=== PATIENT | female | born 1935 | race Caucasian/White ===

== ENCOUNTER → 2016-06-20 | Outpatient (CLI) | payer MEDICARE, MEDICAID ==
[2016-06-20 12:34] LABS: ANION GAP 11 (5-19); BLOOD UREA NITROGEN 32 mg/dL (7-20); CALCIUM 10.8 mg/dL (8.4-10.2); CARBON DIOXIDE 25 mmol/L (22-30); CHLORIDE 105 mmol/L (98-107); CREATININE RESULT 1.54 mg/dL (0.52-1.25); GLUCOSE 95 mg/dL (75-110); SODIUM 140.7 mmol/L (137-145)
== END ==
LOC: OD 10:46
PROVIDERS: ATTEND Internal Medicine Nephrology
DX: N18.3 Chronic kidney disease, stage 3 (moderate) (principal); R80.9 Proteinuria, unspecified
CPT/HCPCS: 36415; 80048

== ENCOUNTER → 2016-07-25 | Outpatient (CLI) | payer MEDICARE, MEDICAID ==
[2016-07-25 10:52] LABS: ALANINE AMINOTRANSFERASE 24 U/L (9-52); ALBUMIN 3.2 g/dL (3.5-5.0); ALKALINE PHOSPHATASE 100 U/L (38-126); ASPARTATE AMINO TRANSFERASE 15 U/L (14-36); BILIRUBIN,TOTAL 0.4 mg/dL (0.2-1.3); CHOLESTEROL 118.18 mg/dL (0-200); Direct HDL 60 mg/dL (>40); TOTAL PROTEIN 5.7 g/dL (6.3-8.2); TRIGLYCERIDES 74 mg/dL (<150)
[2016-07-25 11:03] LABS: DIRECT LDL 42 mg/dL (<100)
== END ==
LOC: OD 09:48
PROVIDERS: ATTEND Specialist
DX: E78.5 Hyperlipidemia, unspecified (principal); I12.9 Hypertensive chronic kidney disease with stage 1 through stage 4 chronic kidney disease, or unspecified chronic kidney disease; N18.3 Chronic kidney disease, stage 3 (moderate); I25.10 Atherosclerotic heart disease of native coronary artery without angina pectoris; D04.30 Carcinoma in situ of skin of unspecified part of face; I44.7 Left bundle-branch block, unspecified; R01.1 Cardiac murmur, unspecified; Z79.899 Other long term (current) drug therapy
CPT/HCPCS: 36415; 80061; 80076

== ENCOUNTER → 2016-09-28 | Outpatient (CLI) | payer MEDICARE, MEDICAID ==
[2016-09-28 09:21] LABS: ABSOLUTE EOSINOPHILS # (AUTO) 0.2 10^3/uL (0.0-0.6); ABSOLUTE LYMPHOCYTES (AUTO) 1.1 10^3/uL (0.5-4.7); ABSOLUTE MONOCYTES (AUTO) 0.4 10^3/uL (0.1-1.4); ABSOLUTE NEUT (AUTO) 2.5 10^3/uL (1.7-8.2); BASOPHILS % (AUTO) 0.9 % (0-2); EOSINOPHILS % (AUTO) 3.8 % (0-6); HEMATOCRIT 35.3 % (36.0-47.0); HEMOGLOBIN 11.9 g/dL (12.0-15.5); HGB HCT DIFFERENCE 0.4; MEAN CORPUSCULAR HEMOGLOBIN 28.1 pg (27.0-33.4); MEAN CORPUSCULAR HGB CONC 33.7 g/dL (32.0-36.0); MEAN CORPUSCULAR VOLUME 84 fl (80-97); MONOCYTES % (AUTO) 9.5 % (3-13); RED BLOOD COUNT 4.23 10^6/uL (3.72-5.28); SEGMENTED NEUTROPHILS % (AUTO) 58.8 % (42-78); WHITE BLOOD COUNT 4.2 10^3/uL (4.0-10.5)
[2016-09-28 09:46] LABS: ANION GAP 10 (5-19); BLOOD UREA NITROGEN 33 mg/dL (7-20); CALCIUM 11.4 mg/dL (8.4-10.2); CARBON DIOXIDE 25 mmol/L (22-30); CHLORIDE 107 mmol/L (98-107); CREATININE RESULT 1.43 mg/dL (0.52-1.25); GLUCOSE 94 mg/dL (75-110); POTASSIUM 4.5 mmol/L (3.6-5.0); SODIUM 142.3 mmol/L (137-145)
== END ==
LOC: OD 07:55
PROVIDERS: ATTEND Internal Medicine Nephrology
DX: N18.3 Chronic kidney disease, stage 3 (moderate) (principal); D63.1 Anemia in chronic kidney disease; R80.9 Proteinuria, unspecified
CPT/HCPCS: 36415; 80048; 82570; 84156; 85025

== ENCOUNTER → 2016-12-31 | Outpatient (CLI) | payer MEDICARE, MEDICAID ==
[2016-12-31 09:15] LABS: URINE CREATININE 111.7 mg/dL (15-278); URINE PROTEIN 16.9 mg/dL (<12)
[2016-12-31 09:16] LABS: BLOOD UREA NITROGEN 27 mg/dL (7-20); CALCIUM 11.1 mg/dL (8.4-10.2); CHLORIDE 107 mmol/L (98-107); CREATININE RESULT 1.76 mg/dL (0.52-1.25); GLUCOSE 104 mg/dL (75-110); POTASSIUM 4.3 mmol/L (3.6-5.0)
[2016-12-31 09:35] LABS: ANION GAP 10 (5-19); CARBON DIOXIDE 23 mmol/L (22-30)
== END ==
LOC: OD 07:22
PROVIDERS: ATTEND Internal Medicine Nephrology
DX: N18.3 Chronic kidney disease, stage 3 (moderate) (principal); R80.9 Proteinuria, unspecified
CPT/HCPCS: 36415; 80048; 82570; 84156

== ENCOUNTER → 2017-04-03 | Outpatient (CLI) | payer MEDICARE, MEDICAID ==
[2017-04-03 13:48] LABS: APPEARANCE,URINE CLEAR; BILIRUBIN,URINE NEGATIVE (NEGATIVE); GLUCOSE, URINE NEGATIVE (NEGATIVE); KETONES,URINE NEGATIVE (NEGATIVE); LEUKOCYTE ESTERASE,URINE LARGE (NEGATIVE); NITRITE,URINE NEGATIVE (NEGATIVE); PROTEIN,URINE NEGATIVE (NEGATIVE); URINE SPECIFIC GRAVITY 1.009; UROBILINOGEN,URINE NEGATIVE mg/dL (<2.0)
[2017-04-03 14:24] LABS: ALBUMIN 3.9 g/dL (3.5-5.0); ANION GAP 11 (5-19); BLOOD UREA NITROGEN 22 mg/dL (7-20); CALCIUM 11.1 mg/dL (8.4-10.2); CARBON DIOXIDE 26 mmol/L (22-30); CHLORIDE 104 mmol/L (98-107); CREATININE RESULT 1.39 mg/dL (0.52-1.25); GLUCOSE 112 mg/dL (75-110); PHOSPHORUS 2.9 mg/dL (2.5-4.5); SODIUM 140.6 mmol/L (137-145)
[2017-04-04 07:32] LABS: VITAMIN D 25-HYDROXY 49.1 ng/mL (30.0-100.0)
[2017-04-04 12:38] LABS: MICROALBUMIN URINE 65.2 ug/mL (Not Estab.)
== END ==
LOC: OD 12:35
PROVIDERS: ATTEND Internal Medicine Nephrology
DX: E21.3 Hyperparathyroidism, unspecified (principal); R80.9 Proteinuria, unspecified; I12.9 Hypertensive chronic kidney disease with stage 1 through stage 4 chronic kidney disease, or unspecified chronic kidney disease; N18.9 Chronic kidney disease, unspecified
CPT/HCPCS: 36415; 80048; 81001; 82040; 82043; 82306; 82570; 83970; 84100

== ENCOUNTER → 2017-08-07 | Outpatient (CLI) | payer MEDICARE, MEDICAID ==
[2017-08-07 12:26] LABS: ANION GAP 8 (5-19); BLOOD UREA NITROGEN 27 mg/dL (7-20); CALCIUM 11.3 mg/dL (8.4-10.2); CARBON DIOXIDE 24 mmol/L (22-30); CHLORIDE 106 mmol/L (98-107); GLUCOSE 99 mg/dL (75-110); POTASSIUM 4.6 mmol/L (3.6-5.0); SODIUM 137.6 mmol/L (137-145)
[2017-08-08 13:38] LABS: CREATININE URINE 74.5 mg/dL (Not Estab.)
== END ==
LOC: OD 10:50
PROVIDERS: ATTEND Internal Medicine Nephrology
DX: N18.3 Chronic kidney disease, stage 3 (moderate) (principal); R80.9 Proteinuria, unspecified
CPT/HCPCS: 36415; 80048; 82043; 82570

== ENCOUNTER → 2019-04-30 | Outpatient (CLI) | payer MEDICARE, MEDICAID ==
[2019-04-30 13:46] LABS: ANION GAP 9 (5-19); BLOOD UREA NITROGEN 21 mg/dL (7-20); CALCIUM 11.6 mg/dL (8.4-10.2); CARBON DIOXIDE 25 mmol/L (22-30); CHLORIDE 105 mmol/L (98-107); GLUCOSE 98 mg/dL (75-110); POTASSIUM 5.1 mmol/L (3.6-5.0)
== END ==
LOC: OD 12:11
PROVIDERS: ATTEND Family Medicine
DX: E87.5 Hyperkalemia (principal)
CPT/HCPCS: 36415; 80048

== ENCOUNTER → 2019-06-02 | Outpatient (CLI) | payer MEDICARE, MEDICAID ==
[2019-06-02 11:36] LABS: ABSOLUTE BASOPHILS # (AUTO) 0.1 10^3/uL (0.0-0.2); ABSOLUTE EOSINOPHILS # (AUTO) 0.3 10^3/uL (0.0-0.6); ABSOLUTE LYMPHOCYTES (AUTO) 1.7 10^3/uL (0.5-4.7); ABSOLUTE MONOCYTES (AUTO) 0.5 10^3/uL (0.1-1.4); ABSOLUTE NEUT (AUTO) 4.2 10^3/uL (1.7-8.2); BASOPHILS % (AUTO) 0.8 % (0-2); EOSINOPHILS % (AUTO) 5.1 % (0-6); HEMATOCRIT 33.2 % (36.0-47.0); HEMOGLOBIN 11.1 g/dL (12.0-15.5); LYMPHOCYTES % (AUTO) 24.4 % (13-45); MEAN CORPUSCULAR HEMOGLOBIN 27.7 pg (27.0-33.4); MEAN CORPUSCULAR HGB CONC 33.5 g/dL (32.0-36.0); MEAN CORPUSCULAR VOLUME 83 fl (80-97); MONOCYTES % (AUTO) 7.5 % (3-13); PLATELET COUNT 157 10^3/uL (150-450); RED BLOOD COUNT 4.01 10^6/uL (3.72-5.28); RED CELL DISTRIBUTION WIDTH 15.3 % (11.5-14.0); SEGMENTED NEUTROPHILS % (AUTO) 62.2 % (42-78); TOTAL CELLS COUNTED % (AUTO) 100 %; WHITE BLOOD COUNT 6.8 10^3/uL (4.0-10.5)
[2019-06-02 11:38] LABS: APPEARANCE,URINE SLIGHTLY-CLOUDY; BILIRUBIN,URINE NEGATIVE (NEGATIVE); COLOR,URINE YELLOW; GLUCOSE, URINE NEGATIVE (NEGATIVE); KETONES,URINE NEGATIVE (NEGATIVE); LEUKOCYTE ESTERASE,URINE LARGE (NEGATIVE); NITRITE,URINE NEGATIVE (NEGATIVE); PROTEIN,URINE NEGATIVE (NEGATIVE); URINE SPECIFIC GRAVITY 1.009; UROBILINOGEN,URINE NEGATIVE mg/dL (<2.0)
[2019-06-02 12:01] LABS: ALBUMIN 3.7 g/dL (3.5-5.0); ANION GAP 10 (5-19); BLOOD UREA NITROGEN 24 mg/dL (7-20); CALCIUM 11.8 mg/dL (8.4-10.2); CARBON DIOXIDE 26 mmol/L (22-30); CHLORIDE 104 mmol/L (98-107); GLUCOSE 102 mg/dL (75-110); POTASSIUM 4.6 mmol/L (3.6-5.0)
[2019-06-03 13:37] LABS: CREATININE URINE 53.7 mg/dL (Not Estab.); MICROALBUMIN URINE 17.3 ug/mL (Not Estab.)
== END ==
LOC: OD 11:00
PROVIDERS: ATTEND Internal Medicine Nephrology
DX: I12.9 Hypertensive chronic kidney disease with stage 1 through stage 4 chronic kidney disease, or unspecified chronic kidney disease (principal); N18.3 Chronic kidney disease, stage 3 (moderate); E83.52 Hypercalcemia; E21.3 Hyperparathyroidism, unspecified
CPT/HCPCS: 36415; 80069; 81001; 82043; 82306; 82570; 83970; 85025

== ENCOUNTER → 2019-09-07 | Outpatient (CLI) | payer MEDICARE, MEDICAID ==
[2019-09-07 13:06] LABS: ABSOLUTE EOSINOPHILS # (AUTO) 0.2 10^3/uL (0.0-0.6); ABSOLUTE LYMPHOCYTES (AUTO) 1.6 10^3/uL (0.5-4.7); ABSOLUTE MONOCYTES (AUTO) 0.5 10^3/uL (0.1-1.4); ABSOLUTE NEUT (AUTO) 4.4 10^3/uL (1.7-8.2); BASOPHILS % (AUTO) 0.7 % (0-2); EOSINOPHILS % (AUTO) 3.4 % (0-6); HEMATOCRIT 34.5 % (36.0-47.0); HEMOGLOBIN 11.7 g/dL (12.0-15.5); LYMPHOCYTES % (AUTO) 23.5 % (13-45); MEAN CORPUSCULAR HEMOGLOBIN 28.1 pg (27.0-33.4); MEAN CORPUSCULAR HGB CONC 33.8 g/dL (32.0-36.0); MEAN CORPUSCULAR VOLUME 83 fl (80-97); MONOCYTES % (AUTO) 6.9 % (3-13); PLATELET COUNT 137 10^3/uL (150-450); RED BLOOD COUNT 4.16 10^6/uL (3.72-5.28); SEGMENTED NEUTROPHILS % (AUTO) 65.5 % (42-78); TOTAL CELLS COUNTED % (AUTO) 100 %; WHITE BLOOD COUNT 6.7 10^3/uL (4.0-10.5)
[2019-09-07 13:33] LABS: ANION GAP 9 (5-19); BLOOD UREA NITROGEN 24 mg/dL (7-20); CALCIUM 11.6 mg/dL (8.4-10.2); CARBON DIOXIDE 25 mmol/L (22-30); CHLORIDE 104 mmol/L (98-107); GLUCOSE 105 mg/dL (75-110); IRON(TIBC) 69.7 ug/dL (37-170)
[2019-09-08 11:37] LABS: CREATININE URINE 59.4 mg/dL (Not Estab.); MICROALBUMIN URINE 267.6 ug/mL (Not Estab.)
[2019-09-08 13:36] LABS: A/G RATIO 1.2 (0.7-1.7); ALBUMIN 2 3.5 g/dL (2.9-4.4); GAMMA GLOBULIN 0.7 g/dL (0.4-1.8); MONOCLONAL SPIKE Not Observed g/dL (Not Observ); PROTEIN TOTAL SERUM 6.5 g/dL (6.0-8.5)
== END ==
LOC: OD 12:26
PROVIDERS: ATTEND Internal Medicine Nephrology
DX: I12.9 Hypertensive chronic kidney disease with stage 1 through stage 4 chronic kidney disease, or unspecified chronic kidney disease (principal); N18.4 Chronic kidney disease, stage 4 (severe)
CPT/HCPCS: 36415; 80048; 82043; 82164; 82306; 82397; 82570; 82728; 83540; 83550; 83970; 84165; 85025

== ENCOUNTER 2020-04-17 14:47 | Inpatient (IN) | payer MEDICARE, MEDICAID ==
[2020-04-17] MEDS ORDERED: NYSTATIN TOPICAL POWDER 15 GM TP ONE (15:15)
--- NOTE | 2020-04-17 15:18 | ER Document Report ---
ED General - General Chief Complaint: Weakness Stated Complaint: WEAKNESS Time Seen by Provider: 04/17/20 14:59 Mode of Arrival: Medic Information source: Patient, Emergency Med Personnel Notes: 84-year-old female patient presenting to the emergency department from home. According to nursing staff and EMS patient's family called EMS due to low blood pressure. They stated she has not taken her blood pressure medication in several days, she took it today and had an episode of low blood pressure. There is also complaints of patient falling however patient states she did not fall today but has been falling a lot lately. According to EMS the patient lives with her daughter in a shed. They have made a report to Adult Protective Services. Patient reports generalized weakness. She states that she sees Dr. Schaeffer as her primary care provider. TRAVEL OUTSIDE OF THE [place] IN LAST 30 DAYS: No - Related Data Allergies/Adverse Reactions: No Known Allergies Allergy (Unverified 09/24/13 09:51) Past Medical History - General Information source: Patient, Relative - Son - Social History Smoking Status: Unknown if Ever Smoked Family History: Other - unable to review, pt states she does not know - Past Medical History Cardiac Medical History: Reports: Hx Hypercholesterolemia, Hx Hypertension Psychiatric Medical History: Reports: Hx Depression Past Surgical History: Reports: Hx Cholecystectomy - Immunizations Hx Diphtheria, Pertussis, Tetanus Vaccination: Yes Review of Systems - Review of Systems Constitutional: Weakness Gastrointestinal: Nausea, Vomiting -: Yes All other systems reviewed and negative Physical Exam - Vital signs Vitals: Resp 33 H 04/17/20 14:52 - Notes Notes: PHYSICAL EXAMINATION: GENERAL: Disheveled, appears to be stated age. HEAD: Atraumatic, normocephalic. EYES: Pupils equal round and reactive to light, extraocular movements intact, conjunctiva are normal. ENT: Nares patent, oropharynx clear without exudates. Moist mucous membranes. NECK: Normal range of motion, supple without lymphadenopathy LUNGS: Breath sounds clear to auscultation bilaterally and equal. No wheezes rales or rhonchi. HEART: Regular rate and rhythm without murmurs ABDOMEN: Soft, nontender, nondistended abdomen. No guarding, no rebound. No masses appreciated. Female : deferred Musculoskeletal: Normal range of motion, no pitting or edema. No cyanosis. NEUROLOGICAL: Cranial nerves grossly intact. Normal sensory, motor exams PSYCH: Normal mood, normal affect. SKIN: Skin wound to left lower extremity Course - Re-evaluation Re-evalutation: 04/17/20 15:17 The patient appears very disheveled, unkempt. She has a erythematous rash to her groin that is very foul-smelling. She also has a dressing to her left lower extremity, patient tells me she does not know why it is there. She denies any chest pain, shortness of breath or unilateral weakness. 04/17/20 16:49 The patient's troponin is elevated however her EKG is unchanged from previous and patient has not had any chest pain. She does have chronic kidney disease. I discussed case with Dr. Wellington, we will trend her troponin to see if this is her baseline or if indeed this is an acute change. 04/17/20 19:27 Repeat troponin slightly down from initial troponin. Again patient has no chest pain. Patient son is at the bedside, he tells me patient has been much more weak than her baseline. She was vomiting for 5 days, the last time she vomited was last night. Call placed to Dr. Pappas who is covering for Dr. Schaeffer. Awaiting phone call back. 04/17/20 19:[address] Pappas. He will admit the patient to the medical floor. Her son at the bedside was updated. - Vital Signs Vital signs: Temp Pulse Resp BP Pulse Ox 97.9 F 17 100/51 L 100 04/17/20 15:54 04/17/20 19:06 04/17/20 19:06 04/17/20 19:06 - Laboratory Result Diagrams: 04/17/20 14:58 04/17/20 14:58 Laboratory results interpreted by me: 04/17/20 04/17/20 04/17/20 14:58 14:58 15:12 Hgb 11.6 L Hct 34.7 L RDW 15.5 H Lymph % (Auto) 11.3 L Absolute Neuts (auto) 8.3 H Seg Neutrophils % 82.4 H Potassium 3.1 L Chloride 110 H BUN 52 H Creatinine 1.96 H Est GFR ( Amer) 29 L Est GFR (MDRD) Non-Af 24 L Calcium 11.8 H Total Protein 5.0 L Albumin 2.7 L Urine Protein 30 H - EKG Interpretation by Ut EKG shows normal: Sinus rhythm - rate 66, left bundle branch block noted, this is unchanged from previous EKG on file dated 01/30/2016. No obvious ST segment elevations or depressions to suggest ischemia. Discharge - Discharge Clinical Impression: Generalized weakness, Dehydration Condition: Stable Disposition: ADMITTED INPATIENT Admitting Provider: Mian Roach [facility] Unit Admitted: Medical Floor
[2020-04-17 15:23] LABS: ABSOLUTE EOSINOPHILS # (AUTO) 0.1 10^3/uL (0.0-0.6); ABSOLUTE LYMPHOCYTES (AUTO) 1.1 10^3/uL (0.5-4.7); ABSOLUTE MONOCYTES (AUTO) 0.5 10^3/uL (0.1-1.4); ABSOLUTE NEUT (AUTO) 8.3 10^3/uL (1.7-8.2); BASOPHILS % (AUTO) 0.1 % (0-2); EOSINOPHILS % (AUTO) 0.9 % (0-6); HEMATOCRIT 34.7 % (36.0-47.0); HEMOGLOBIN 11.6 g/dL (12.0-15.5); LYMPHOCYTES % (AUTO) 11.3 % (13-45); MEAN CORPUSCULAR HEMOGLOBIN 28.6 pg (27.0-33.4); MEAN CORPUSCULAR HGB CONC 33.6 g/dL (32.0-36.0); MEAN CORPUSCULAR VOLUME 85 fl (80-97); MONOCYTES % (AUTO) 5.3 % (3-13); PLATELET COUNT 157 10^3/uL (150-450); RED BLOOD COUNT 4.06 10^6/uL (3.72-5.28); RED CELL DISTRIBUTION WIDTH 15.5 % (11.5-14.0); SEGMENTED NEUTROPHILS % (AUTO) 82.4 % (42-78); TOTAL CELLS COUNTED % (AUTO) 100 %; WHITE BLOOD COUNT 10.1 10^3/uL (4.0-10.5)
[2020-04-17 15:42] LABS: ALBUMIN 2.7 g/dL (3.5-5.0); ALKALINE PHOSPHATASE 118 U/L (38-126); ANION GAP 10 (5-19); ASPARTATE AMINO TRANSFERASE 20 U/L (14-36); BILIRUBIN,DIRECT 0.3 mg/dL (0.0-0.4); BILIRUBIN,TOTAL 0.7 mg/dL (0.2-1.3); BLOOD UREA NITROGEN 52 mg/dL (7-20); CALCIUM 11.8 mg/dL (8.4-10.2); CARBON DIOXIDE 24 mmol/L (22-30); CHLORIDE 110 mmol/L (98-107); CREATINE KINASE 46 U/L (30-135); GLUCOSE 105 mg/dL (75-110); POTASSIUM 3.1 mmol/L (3.6-5.0)
[2020-04-17 15:49] LABS: APPEARANCE,URINE CLEAR; BILIRUBIN,URINE NEGATIVE (NEGATIVE); COLOR,URINE YELLOW; GLUCOSE, URINE NEGATIVE (NEGATIVE); KETONES,URINE NEGATIVE (NEGATIVE); LEUKOCYTE ESTERASE,URINE NEGATIVE (NEGATIVE); NITRITE,URINE NEGATIVE (NEGATIVE); PROTEIN,URINE 30 mg/dL (NEGATIVE); URINE SPECIFIC GRAVITY 1.017; UROBILINOGEN,URINE NEGATIVE mg/dL (<2.0)
[2020-04-17 15:51] LABS: CREATINE KINASE MB 0.58 ng/mL (<4.55)
--- NOTE | 2020-04-17 15:52 | RADIOLOGY REPORT (SQ) ---
EXAM DESCRIPTION: CT HEAD WITHOUT IMAGES COMPLETED DATE/TIME: 04/17/2020 3:43 pm REASON FOR STUDY: weakness/ams COMPARISON: None. TECHNIQUE: Axial images acquired through the brain without intravenous contrast. Images reviewed wi th bone, brain and subdural windows. Additional sagittal and coronal reconstructions were generated. Images stored on PACS. All CT scanners at this facility use dose modulation, iterative reconstruction, and/or weight based d osing when appropriate to reduce radiation dose to as low as reasonably achievable (ALARA). [facility]: Dose Right [facility]: CareDose [facility]: Dose Right [facility]: Teradose 4D [facility]: Smart [employer] RADIATION DOSE: CT Rad equipment meets quality standard of care and radiation dose reduction techniq ues were employed. CTDIvol: 53.2 mGy. DLP: 991 mGy-cm.mGy. LIMITATIONS: None. FINDINGS: VENTRICLES: Prominent. CEREBRUM: No masses. No hemorrhage. No midline shift. Areas of low density in the white matter mos t likely due to chronic micro-vascular ischemic change. No evidence for acute infarction. CEREBELLUM: No masses. No hemorrhage. No alteration of density. No evidence for acute infarction. EXTRAAXIAL SPACES: Age-related involutional change. No fluid collections. No masses. ORBITS AND GLOBE: No intra- or extraconal masses. Normal contour of globe without masses. CALVARIUM: No fracture. PARANASAL SINUSES: No fluid or mucosal thickening. SOFT TISSUES: No mass or hematoma. OTHER: No other significant finding. IMPRESSION: CHRONIC CHANGES OF ATROPHY AND MICROVASCULAR ISCHEMIA. NO ACUTE PROCESS. EVIDENCE OF ACUTE STROKE: NO. TECHNICAL DOCUMENTATION: JOB ID: [id number] Quality ID # [id number]: Final reports with documentation of one or more dose reduction techniques (e.g., Au tomated exposure control, adjustment of the mA and/or kV according to patient size, use of iterative reconstruction technique) 2010 [employer]- All Rights Reserved Reading location - IP/workstation name: [email or web address]
[2020-04-17 15:53] LABS: TROPONIN I 0.121 ng/mL
--- NOTE | 2020-04-17 15:53 | RADIOLOGY REPORT (SQ) ---
EXAM DESCRIPTION: CHEST SINGLE VIEW IMAGES COMPLETED DATE/TIME: 04/17/2020 3:41 pm REASON FOR STUDY: weakness COMPARISON: 10/07/2013 EXAM PARAMETERS: NUMBER OF VIEWS: One view. TECHNIQUE: Single frontal radiographic view of the chest acquired. RADIATION DOSE: NA LIMITATIONS: None. FINDINGS: LUNGS AND PLEURA: Chronic blunting of the left costophrenic angle. No evidence of pulmona ry edema or pneumonia. MEDIASTINUM AND HILAR STRUCTURES: No masses. Contour normal. HEART AND VASCULAR STRUCTURES: Heart normal in size. Normal vasculature. BONES: No acute findings. HARDWARE: None in the chest. OTHER: Stable position of right-sided port. IMPRESSION: NO ACUTE RADIOGRAPHIC FINDING IN THE CHEST. TECHNICAL DOCUMENTATION: JOB ID: [id number] 2010 [employer]- All Rights Reserved Reading location - IP/workstation name: [email or web address]
--- NOTE | 2020-04-17 18:50 | EKG REPORT ---
SEVERITY:- ABNORMAL ECG - SINUS RHYTHM ATRIAL PREMATURE COMPLEX LEFT BUNDLE BRANCH BLOCK : Confirmed by: Nic Hardy MD 17-Apr-2020 18:49:44
[2020-04-17] MEDS ORDERED: POTASSIUM CHLORIDE 10 MEQ TABLET.ER PO ONE (19:29)
[2020-04-17] MEDS ORDERED: NORMAL SALINE 1000 ML 1,000 ML IV ONE (19:29)
[2020-04-17] MEDS ORDERED: NORMAL SALINE 1000 ML 1,000 ML IV PRN (20:05)
[2020-04-18 08:24] LABS: HEMATOCRIT 34.5 % (36.0-47.0); HEMOGLOBIN 11.3 g/dL (12.0-15.5); MEAN CORPUSCULAR HEMOGLOBIN 28.1 pg (27.0-33.4); MEAN CORPUSCULAR HGB CONC 32.7 g/dL (32.0-36.0); MEAN CORPUSCULAR VOLUME 86 fl (80-97); PLATELET COUNT 141 10^3/uL (150-450); RED BLOOD COUNT 4.02 10^6/uL (3.72-5.28); RED CELL DISTRIBUTION WIDTH 16.3 % (11.5-14.0); WHITE BLOOD COUNT 8.9 10^3/uL (4.0-10.5)
[2020-04-18 08:44] LABS: ANION GAP 10 (5-19); BLOOD UREA NITROGEN 45 mg/dL (7-20); CALCIUM 11.3 mg/dL (8.4-10.2); CARBON DIOXIDE 19 mmol/L (22-30); CHLORIDE 114 mmol/L (98-107); GLUCOSE 83 mg/dL (75-110)
[2020-04-18 08:48] LABS: POTASSIUM 3.6 mmol/L (3.6-5.0)
--- NOTE | 2020-04-18 10:25 | RADIOLOGY REPORT (SQ) ---
EXAM DESCRIPTION: CT ABD/PELVIS NO ORAL OR IV IMAGES COMPLETED DATE/TIME: 04/18/2020 9:57 am REASON FOR STUDY: nause/vomiting COMPARISON: CT 07/23/2011 TECHNIQUE: CT scan of the abdomen and pelvis performed without intravenous or oral contrast. Images reviewed with lung, soft tissue, and bone windows. Reconstructed coronal and sagittal MPR images revi ewed. All images stored on PACS. All CT scanners at this facility use dose modulation, iterative reconstruction, and/or weight based d osing when appropriate to reduce radiation dose to as low as reasonably achievable (ALARA). [facility]: Dose Right [facility]: CareDose [facility]: Dose Right [facility]: Teradose 4D [facility]: Smart [employer] RADIATION DOSE: CT Rad equipment meets quality standard of care and radiation dose reduction techniq ues were employed. CTDIvol: 13.8 mGy. DLP: 700 mGy-cm.mGy. LIMITATIONS: None. FINDINGS: LOWER CHEST: Heavy mitral annulus calcifications versus hardware. No acute intrathoracic findings. NON-CONTRASTED LIVER, SPLEEN, ADRENALS: Evaluation limited by lack of IV contrast. Bilateral low-den sity (Hounsfield units less than 10) adrenal lesions, largest on the right measuring 2.0 x 1.7 cm, co mpatible with adrenal adenomas. No other Identified significant masses. PANCREAS: There is asymmetric soft tissue density within the pancreatic tail measuring approximately 2.3 x 1.4 cm. There is mild adjacent peripancreatic stranding. No focal collection. GALLBLADDER: Surgically absent. RIGHT KIDNEY AND URETER: No suspicious masses. Assessment limited by lack of IV contrast. No signif icant calcifications. No hydronephrosis or hydroureter. LEFT KIDNEY AND URETER: No suspicious masses. Assessment limited by lack of IV contrast. Punctate n onobstructing interpolar stone. No hydronephrosis or hydroureter. AORTA AND RETROPERITONEUM: Shotty retroperitoneal lymph nodes without discrete adenopathy. BOWEL AND PERITONEAL CAVITY: Scattered colonic diverticula. No evidence of intestinal obstruction. No focal bowel wall thickening. APPENDIX: Not identified. PELVIS, BLADDER, AND ABDOMINAL WALL:Decompressed urinary bladder. No pelvic free fluid, adenopathy o r mass. BONES: No acute bony abnormality. No suspicious osseous lesions. Multilevel thoracolumbar spondylos is. OTHER: No other significant finding. IMPRESSION: 1. Asymmetric soft tissue density within the pancreatic tail measuring approximately 2. 3 x 1.4 cm with mild adjacent peripancreatic stranding. Findings may be sequelae of pancreatitis alt shobha pancreatic neoplasm is not excluded. Recommend correlation with lab values and patient's sympt oms. Follow-up dedicated pancreatic protocol CT or MRI should be considered for further characteriza tion. 2. No other evidence of acute intra-abdominal/pelvic process. 3. Status post cholecystectomy. COMMENT: Quality ID # [id number]: Final reports with documentation of one or more dose reduction techniques (e.g., Automated exposure control, adjustment of the mA and/or kV according to patient size, use of iterative reconstruction technique) TECHNICAL DOCUMENTATION: JOB ID: [id number] 2010 [employer]- All Rights Reserved Reading location - IP/workstation name: [email or web address]
[2020-04-18 11:55] LABS: ALBUMIN 2.5 g/dL (3.5-5.0); ALKALINE PHOSPHATASE 108 U/L (38-126); ASPARTATE AMINO TRANSFERASE 21 U/L (14-36); BILIRUBIN,DIRECT 0.3 mg/dL (0.0-0.4); BILIRUBIN,TOTAL 0.5 mg/dL (0.2-1.3); TOTAL PROTEIN 5.1 g/dL (6.3-8.2)
--- NOTE | 2020-04-18 12:16 | PDOC H&P ---
History of Present Illness Admission Date/PCP: 04/17/20 19:47 Patient complains of: Weakness History of Present Illness: VIOLETA TIERNEY is a 84 year old female This 84-year-old female's with a significant history of the chronic kidney disease stage IV hypertension's hyperlipidemia underlying dementia coronary artery disease and multiple other comorbidityBrought to the emergency department by the her son to the EMS because of getting more weak According to the son patient's was taking care of by her daughters when she got a stroke couple of months back and then patient last week went to her old house and the patient was not eating or drinking when the son went to the house patient was very weak patient's son try to give her some blood pressure medications and then makes the patient's blood pressure slowed and very weak and called the EMS In the emergency department patient was find the dehydrated acute renal failure and admitting in the hospital I saw the patient in the 4 patient was alert awake but agitated patient have a significant groin candidiasis order the CT scan of the abdomen and pelvis with so the questionable pancreatic issue with possible pancreatitis with a lipase was elevated At this point discussed with the patient's son Sammy regarding the patient's current conditions about the CODE STATUS and he will discussed with her family member but pretty much toward about the no code Past Medical History Cardiac Medical History: Reports: Congestive Heart Failure, Coronary Artery Disease, Hyperlipidema, Hypertension Renal/ Medical History: Reports: Chronic Kidney Disease GI Medical History: Reports: Gastroesophageal Reflux Disease Psychiatric Medical History: Reports: Depression Past Surgical History Past Surgical History: Reports: Cholecystectomy Social History Information Source: Patient Smoking Status: Never Smoker Electronic Cigarette use?: No Frequency of Alcohol Use: None Hx Recreational Drug Use: No Drugs: None Hx Prescription Drug Abuse: No Family History Family History: Other - unable to review, pt states she does not know Parental Family History Reviewed: Yes Children Family History Reviewed: Yes Sibling(s) Family History Reviewed.: Yes Medication/Allergy Home Medications: Clonidine HCl [Catapres 0.2 mg Tablet] 0.2 mg PO TID 09/24/13 Hydralazine HCl [Apresoline 50 mg Tablet] 100 mg PO Q8 #90 tablet 09/26/13 Atenolol [Tenormin 50 mg Tablet] 50 mg PO Q12 04/18/20 Furosemide [Lasix 20 mg Tablet] 10 mg PO DAILY 04/18/20 Losartan Potassium 50 mg PO Q12 04/18/20 Mupirocin [Bactroban 2% Ointment 22 gm] 1 applic TOP TID 04/18/20 Rosuvastatin Calcium 5 mg PO QHS 04/18/20 Allergies/Adverse Reactions: No Known Allergies Allergy (Unverified 09/24/13 09:51) Review of Systems Constitutional: ABSENT: chills, fever(s), headache(s), weight gain, weight loss Eyes: ABSENT: visual disturbances Ears: ABSENT: hearing changes Cardiovascular: ABSENT: chest pain, dyspnea on exertion, edema, orthropnea, palpitations Respiratory: ABSENT: cough, hemoptysis Gastrointestinal: ABSENT: abdominal pain, constipation, diarrhea, hematemesis, hematochezia, nausea, vomiting Genitourinary: ABSENT: dysuria, hematuria Musculoskeletal: ABSENT: joint swelling Integumentary: ABSENT: rash, wounds Neurological: ABSENT: abnormal gait, abnormal speech, confusion, dizziness, focal weakness, syncope Psychiatric: ABSENT: anxiety, depression, homidical ideation, suicidal ideation Endocrine: ABSENT: cold intolerance, heat intolerance, menstrual abnormalities, polydipsia, polyuria Hematologic/Lymphatic: ABSENT: easy bleeding, easy bruising, lymphadenopathy Physical Exam Vital Signs: Temp Pulse Resp BP Pulse Ox 97.3 F 64 18 153/61 H 98 04/18/20 08:42 04/18/20 08:42 04/18/20 08:42 04/18/20 08:42 04/18/20 08:42 Intake & Output 04/17/20 04/18/20 04/19/20 06:59 06:59 06:59 Intake Total 1260 Output Total 0 Balance 1260 Weight 78.3 kg General appearance: PRESENT: no acute distress, well-developed, well-nourished Head exam: PRESENT: atraumatic, normocephalic Eye exam: PRESENT: conjunctiva pink, EOMI, PERRLA. ABSENT: scleral icterus Ear exam: PRESENT: normal external ear exam Mouth exam: PRESENT: moist, tongue midline Neck exam: PRESENT: full ROM. ABSENT: carotid bruit, JVD, lymphadenopathy, thyromegaly Respiratory exam: PRESENT: clear to auscultation ying Cardiovascular exam: PRESENT: RRR. ABSENT: diastolic murmur, rubs, systolic murmur Vascular exam: PRESENT: normal capillary refill GI/Abdominal exam: PRESENT: normal bowel sounds, soft. ABSENT: distended, guarding, mass, organolmegaly, rebound, tenderness Additonal comments: Bilateral redness in the both groin area with a candiadis Rectal exam: PRESENT: deferred Neurological exam: PRESENT: alert, awake, oriented to person. ABSENT: motor sensory deficit Psychiatric exam: PRESENT: appropriate affect, normal mood. ABSENT: homicidal ideation, suicidal ideation Skin exam: PRESENT: dry, intact, warm. ABSENT: cyanosis, rash Results Laboratory Results: 04/18/20 08:04 04/18/20 08:04 04/17/20 04/17/20 04/17/20 14:58 14:58 15:12 WBC 10.1 RBC 4.06 Hgb 11.6 L Hct 34.7 L MCV 85 MCH 28.6 MCHC 33.6 RDW 15.5 H Plt Count 157 Seg Neutrophils % 82.4 H Sodium 144.4 Potassium 3.1 L Chloride 110 H Carbon Dioxide 24 Anion Gap 10 BUN 52 H Creatinine 1.96 H Est GFR ( Amer) 29 L Glucose 105 Calcium 11.8 H Total Bilirubin 0.7 AST 20 Alkaline Phosphatase 118 Total Protein 5.0 L Albumin 2.7 L Lipase Urine Color YELLOW Urine Appearance CLEAR Urine pH 5.0 Ur Specific Sherman 1.017 Urine Protein 30 H Urine Glucose (UA) NEGATIVE Urine Ketones NEGATIVE Urine Blood NEGATIVE Urine Nitrite NEGATIVE Ur Leukocyte Esterase NEGATIVE Urine WBC (Auto) 0 04/18/20 04/18/20 04/18/20 08:04 08:04 08:04 WBC 8.9 RBC 4.02 Hgb 11.3 L Hct 34.5 L MCV 86 MCH 28.1 MCHC 32.7 RDW 16.3 H Plt Count 141 L Seg Neutrophils % Sodium 143.1 Potassium 3.6 Chloride 114 H Carbon Dioxide 19 L Anion Gap 10 BUN 45 H Creatinine 1.66 H Est GFR ( Amer) 36 L Glucose 83 Calcium 11.3 H Total Bilirubin 0.5 AST 21 Alkaline Phosphatase 108 Total Protein 5.1 L Albumin 2.5 L Lipase 544.5 H Urine Color Urine Appearance Urine pH Ur Specific Sherman Urine Protein Urine Glucose (UA) Urine Ketones Urine Blood Urine Nitrite Ur Leukocyte Esterase Urine WBC (Auto) 04/17/20 04/17/20 04/17/20 14:58 14:58 18:03 Creatine Kinase 46 CK-MB (CK-2) 0.58 Troponin I 0.121 0.104 Impressions: Chest X-Ray 04/17/20 15:13 IMPRESSION: NO ACUTE RADIOGRAPHIC FINDING IN THE CHEST. Head CT 04/17/20 15:14 IMPRESSION: CHRONIC CHANGES OF ATROPHY AND MICROVASCULAR ISCHEMIA. NO ACUTE PROCESS. EVIDENCE OF ACUTE STROKE: NO. Abdomen/Pelvis CT 04/18/20 00:00 IMPRESSION: 1. Asymmetric soft tissue density within the pancreatic tail measuring approximately 2.3 x 1.4 cm with mild adjacent peripancreatic stranding. Findings may be sequelae of pancreatitis although pancreatic neoplas m is not excluded. Recommend correlation with lab values and patient's symptoms. Follow-up dedicated pancreatic protocol CT or MRI should be considered for further characterization. 2. No other evidence of acute intra-abdominal/pelvic process. 3. Status post cholecystectomy. Assessment & Plan - Diagnosis (1) Acute pancreatitis Qualifiers: Acute pancreatitis complication: unspecified Is this a current diagnosis for this admission?: Yes Plan: Patient CT scan of the abdomen pelvis suggest some mild pancreatitis probably patient is getting benefit from MRI of the abdomen was the patient's get more stable will do it Keep n.p.o. continues IV fluid (2) Acute renal failure superimposed on chronic kidney disease Qualifiers: Chronic kidney disease stage: stage 4 (severe) Is this a current diagnosis for this admission?: Yes Plan: Will continues IV fluid get the urine culture consult the nephrology (3) Essential (primary) hypertension Is this a current diagnosis for this admission?: Yes Plan: Currently hold all blood pressure medicines due to the low blood pressures (4) Coronary artery disease Qualifiers: Coronary Disease-Associated Artery/Lesion type: unspecified vessel or lesion type Associated angina: without angina Is this a current diagnosis for this admission?: Yes Plan: We will consult the cardiology (5) Elevated troponin Is this a current diagnosis for this admission?: Yes Plan: Discussed with the Dr. HANSEN the patient will normally see continues the current medications get the echocardiogram (6) Dementia Qualifiers: Dementia type: unspecified type Dementia behavioral disturbance: without behavioral disturbance Qualified Code(s): F03.90 - Unspecified dementia without behavioral disturbance Is this a current diagnosis for this admission?: Yes (7) Dehydration Is this a current diagnosis for this admission?: Yes Plan: Continues IV fluid (8) Generalized weakness Is this a current diagnosis for this admission?: Yes Plan: Get the physical therapy evaluations (9) Candidiasis of female genitalia Is this a current diagnosis for this admission?: Yes Plan: Continues on nystatin - Time Time Spent: 50 to 70 Minutes Medications reviewed and adjusted accordingly: Yes Anticipated Discharge Disposition: Half-Way Facility Anticipated Discharge Timeframe: within 72 hours - Inpatient Certification Based on my medical assessment, after consideration of the patient's comorbidities, presenting symptoms, or acuity I expect that the services needed warrant INPATIENT care.: Yes I certify that my determination is in accordance with my understanding of Medicare's requirements for reasonable and necessary INPATIENT services [42 CFR 412.3e].: Yes Medical Necessity: Failure to Improve With Outpatient Therapy, Significant Comorbidiites Make Outpatient Treatment Too Risky, Need For IV Fluids, Need for IV Antibiotics Post Hospital Care: D/[employer] Documentation - Plan Summary Plan Summary: Discussed with the patient's son Sammy regarding the patient's current conditions discussed about the CODE STATUS continues to current medications discussed with the cardiology and nephrology
[2020-04-18] MEDS: CEFTRIAXONE 1 GM/D5W RTU 1 GM/50 ML RTUPB IV SCH (13:38)
[2020-04-18] MEDS: PANTOPRAZOLE SODIUM 40 MG VIAL IV SCH ×2 (13:39→21:36)
[2020-04-18] MEDS: NYSTATIN TOPICAL POWDER 15 GM TP SCH ×2 (13:43→18:59)
[2020-04-18] MEDS: MUPIROCIN 2% OINTMENT 22 GM TOP SCH ×2 (15:59→18:59)
[2020-04-18] MEDS: 1/2 NORMAL SALINE 1,000 ML IV PRN (16:04)
--- NOTE | 2020-04-18 19:00 | XCELERA REPORT ---
[address] [address] Transthoracic Echocardiogram Report Name: VIOLETA TIERNEY Age: 84 yrs Gender: Female : 1935 Patient Status: Inpatient Patient Location: [address] [place], [place] [address] Study Date: 04/18/2020 10:39 AM Height: 68 in Weight: 172 lb BSA: 1.9 m2 Procedure: A two-dimensional transthoracic echocardiogram with color flow and Doppler was performed. The study was technically difficult with many images being suboptimal in quality. Reason For Study: elevated troponin /chf History: elevated troponin /chf. Ordering Physician: DEMETRIA ARNETT Performed By: Colleen Kamara Interpretation Summary The left ventricle is normal in size. There is normal left ventricular wall thickness. LV EF is 55% to 60% Left ventricular systolic function is normal. Doppler measurements suggest impaired left ventricular relaxation, which is associated with grade I/IV or mild diastolic dysfunction The left ventricular wall motion is normal. Septal motion is consistent with conduction abnormality No ASD,VSD or PFO seen. The right ventricle is not well visualized secondary to technical limitations The right atrium is normal. The left atrium is mildly dilated. There is mild mitral annular calcification. There is no evidence of mitral valve prolapse. There is no vegetation seen on the mitral valve. There is no mitral valve stenosis. There is a trace amount of mitral regurgitation There is no aortic valvular vegetation. There is no aortic valve stenosis There is aortic sclerosis without aortic stenosis. No aortic regurgitation is present. There is no tricuspid stenosis. There is a trace amount of tricuspid regurgitation There is mild pulmonary hypertension by echo RVSP is 33 to 38 mm of Hg , with RA mmean of 5 to 10. There is no pulmonic valvular stenosis. There is no pulmonic valvular regurgitation. The aortic root is not well visualized but is probably normal size. The inferior vena cava appeared normal and decreased > 50% with respiration (RAP 5-10 mmHg) There is no pericardial effusion. MMode/2D Measurements & Calculations RVDd: 3.5 cm LVIDd: 4.6 cm FS: 42.1 % Ao root diam: 3.7 cm IVSd: 1.1 cm LVIDs: 2.7 cm EDV(Teich): 96.8 ml Ao root area: 10.9 cm2 LVPWd: 1.1 cm ESV(Teich): 26.0 ml LA dimension: 4.4 cm EF(Teich): 73.1 % Doppler Measurements & Calculations MV E max kenyatta: MV P1/2t max kenyatta: Ao V2 max: LV V1 max P.3 cm/sec 69.0 cm/sec 179.2 cm/sec 5.8 mmHg MV A max kenyatta: MV P1/2t: 94.9 msec Ao max PG: LV V1 max: 101.4 cm/sec MVA(P1/2t): 2.3 cm2 12.8 mmHg 120.8 cm/sec MV E/A: 0.67 MV dec slope: 213.0 cm/sec2 MV dec time: 0.31 sec PA V2 max: TR max kenyatta: MV P1/2t-pr_phl: 108.1 cm/sec 266.0 cm/sec 94.9 msec PA max P.7 mmHgTR max P.3 mmHg Left Ventricle The left ventricle is normal in size. There is normal left ventricular wall thickness. LV EF is 55% to 60%. Left ventricular systolic function is normal. Doppler measurements suggest impaired left ventricular relaxation, which is associated with grade I/IV or mild diastolic dysfunction. The left ventricular wall motion is normal. Septal motion is consistent with conduction abnormality. There is no thrombus. No ASD,VSD or PFO seen. Right Ventricle The right ventricle is not well visualized secondary to technical limitations. Atria The right atrium is normal. The left atrium is mildly dilated. Mitral Valve There is mild mitral annular calcification. There is no evidence of mitral valve prolapse. There is no vegetation seen on the mitral valve. There is no mitral valve stenosis. There is a trace amount of mitral regurgitation. Aortic Valve There is no aortic valvular vegetation. There is no aortic valve stenosis. There is aortic sclerosis without aortic stenosis. No aortic regurgitation is present. Tricuspid Valve There is no tricuspid stenosis. There is a trace amount of tricuspid regurgitation. There is mild pulmonary hypertension by echo. RVSP is 33 to 38 mm of Hg , with RA mmean of 5 to 10. Pulmonic Valve There is no pulmonic valvular stenosis. There is no pulmonic valvular regurgitation. Great Vessels The aortic root is not well visualized but is probably normal size. The inferior vena cava appeared normal and decreased > 50% with respiration (RAP 5-10 mmHg). Effusions There is no pericardial effusion. : DEMETRIA ARNETT Lakshmi
--- NOTE | 2020-04-18 19:47 | PDOC CONSULTATION ---
Consultation-Blank Consultation: CARDIOLOGY CONSULTATION by Dr. Mar Valente on 04/18/2020. Patient seen at 3:45 PM. 60 minutes spent on this patient with more than 50% of time spent in direct patient care. REASON FOR CONSULTATION: Elevated troponin I and possible congestive heart failure. CONSULT REQUESTING PHYSICIAN: Dr. Schaeffer. HISTORY OF PRESENT ILLNESS: Patient well-known to me follows up in the office. She has a history of hypertension hyperlipidemia and chronic left bundle branch block pattern and chronic kidney disease stage III admitted with increasing falls and generalized weakness but no syncope. The patient is to be taken care of by the patient's daughter. The patient's daughter developed a stroke and hence when the son went to see the his mother the patient was seen to be living and unkempt living conditions. And she had not eaten or drank as usual. She is also found to be weak. I find her to be confused also pleasantly. There is no focal deficits. There is no definite evidence of syncope. The patient appears to be dehydrated and has acute on chronic kidney disease and has type II myocardial infarction due to supply and pain demand mismatch due to acute on chronic renal failure dehydration causing the troponin to be marginally elevated. The troponin is trending down. On repeated questioning the patient although pleasantly confused denies chest pain or discomfort. The patient also was found to have hypotension and at present his blood pressure is low normal with IV fluids. Past Medical History Cardiac Medical History: Reports: Congestive Heart Failure, Coronary Artery Disease, Hyperlipidema, Hypertension Renal/ Medical History: Reports: Chronic Kidney Disease GI Medical History: Reports: Gastroesophageal Reflux Disease Psychiatric Medical History: Reports: Depression Past Surgical History Past Surgical History: Reports: Cholecystectomy Social History Information Source: Patient Smoking Status: Never Smoker Electronic Cigarette use?: No Frequency of Alcohol Use: None Hx Recreational Drug Use: No Drugs: None Hx Prescription Drug Abuse: No Family History Family History: Other - unable to review, pt states she does not know Parental Family History Reviewed: Yes Children Family History Reviewed: Yes Sibling(s) Family History Reviewed.: Yes Medication/Allergy Home Medications: Clonidine HCl [Catapres 0.2 mg Tablet] 0.2 mg PO TID 09/24/13 Hydralazine HCl [Apresoline 50 mg Tablet] 100 mg PO Q8 #90 tablet 09/26/13 Atenolol [Tenormin 50 mg Tablet] 50 mg PO Q12 04/18/20 Furosemide [Lasix 20 mg Tablet] 10 mg PO DAILY 04/18/20 Losartan Potassium 50 mg PO Q12 04/18/20 Mupirocin [Bactroban 2% Ointment 22 gm] 1 applic TOP TID 04/18/20 Rosuvastatin Calcium 5 mg PO QHS 04/18/20 Allergies/Adverse Reactions: No Known Allergies Allergy (Unverified 09/24/13 09:51) RESUSCITATION STATUS: The patient is a full code. The patient's son is her surrogate healthcare decision maker. Current Medications Generic Name Dose Route Start Last Admin Trade Name Freq PRN Reason Stop Dose Admin Atorvastatin Calcium 10 mg 04/18/20 22:00 Lipitor 10 Mg Tablet PO 05/18/20 21:59 QHS GAURANG Ceftriaxone Sodium/Dextrose 1 gm in 50 mls @ 100 mls/hr 04/18/20 10:00 04/18/20 16:04 Rocephin Rtu 1 Gm/D5w 50 Ml Premix IV 04/25/20 09:59 Infused DAILY GAURANG Infusion Sodium Chloride 1,000 mls @ 80 mls/hr 04/18/20 11:37 04/18/20 16:04 Nacl 0.45% 1000 Ml Iv Soln IV 05/18/20 11:36 80 mls/hr CONTINUOUS PRN Administration THIS MED IS NOT "PRN" Mupirocin 1 applic 04/18/20 14:00 04/18/20 18:59 Bactroban 2% Ointment 22 Gm TOP 05/18/20 13:59 1 applic TID GAURANG Administration Nystatin 1 applic 04/18/20 10:00 04/18/20 18:59 Mycostatin Topical Powder 15 Gm TP 04/25/20 09:59 1 ea BID GAURANG Administration Pantoprazole Sodium 40 mg 04/18/20 10:00 04/18/20 13:39 Protonix Iv Inj 40 Mg Vial IV 04/21/20 09:59 40 mg Q12 GAURANG Administration Discontinued Medications Generic Name Dose Route Start Last Admin Trade Name Freq PRN Reason Stop Dose Admin Sodium Chloride 1,000 mls @ 0 mls/hr 04/17/20 19:29 04/17/20 21:03 Nacl 0.9% 1000 Ml Iv Soln IV 04/17/20 19:30 Infused BOLUS ONE Infusion Wide Open Sodium Chloride 1,000 mls @ 100 mls/hr 04/17/20 20:05 04/18/20 13:44 Nacl 0.9% 1000 Ml Iv Soln IV 05/17/20 20:04 Infused CONTINUOUS PRN Infusion THIS MED IS NOT "PRN" Nystatin 1 applic 04/17/20 15:15 04/17/20 16:21 Mycostatin Topical Powder 15 Gm TP 04/17/20 15:16 1 applic NOW ONE Administration Potassium Chloride 40 meq 04/17/20 19:29 04/17/20 19:58 Klor-Con 10 Meq Tablet Er PO 04/17/20 19:30 40 meq NOW ONE Administration REVIEW OF SYSTEMS: The patient is pleasantly confused. Denies chest pain or discomfort. As per chart there is no history of fever chills or rigors. Review of symptoms as per Dr. Schaeffer's H&P. I cannot obtain any more details. PHYSICAL EXAMINATION: The patient is pleasantly confused. She is mildly obese. She does not appear to be in any acute distress. Selected Entries 04/18/20 15:35 Temperature 98.4 F Temperature Oral Source Pulse Rate 70 Respiratory 18 Rate Blood Pressure 101/88 H Blood Pressure 92 Mean BP Location Right Arm BP Position Supine O2 Sat by Pulse 97 Oximetry Oxygen Delivery Room Air Method HEAD: Is atraumatic normocephalic. EYES: Nipples are equal round regular reactive to light and accommodation. Extraocular movements are normal. There is no conjunctival pallor. There is no scleral icterus. EARS: Tympanic membranes are intact. External auditory canals are clear. NOSE: There is no deviated nasal septum. There is no inflammation nasal mucous membrane. MOUTH: Mucous membranes of the mouth and tongue are dry. There is no bleeding from the gums. THROAT: There is no redness of the oropharynx. There is no exudates. SKIN: There is no skin rashes. There is no skin lesions. There is no petechia or ecchymosis. NECK: Is supple. There is no JVD. Carotids are equal there is no bruits. There is no lymphadenopathy. There is no goiter. There is no lymp hadenopathy. There is no accessory muscle respiration use. Trachea central. LUNGS: Clear to auscultation percussion without any rhonchi rales or wheezing. HEART: S1-S2 is heard. There is no S3 gallop. There is no S4 gallop. Systolic murmur left sternal border and the apex there is no rub. ABDOMEN: Soft. There is no hepatosplenomegaly. Bowel sounds are well heard. EXTREMITIES: Femorals a re deep. Femorals are diminished. There is no femoral bruits. Leg pulses slightly diminished. There is no pedal edema. There is fungal infection of the patient's groin. There is no cyanosis or clubbing. There is no DVT or cellulitis. There is no calf tenderness. TICKETING AGENT: The patient is conscious awake and alert but is pleasantly confused. There is no focal deficits. PSYCHIATRIC: The patient does not appear to be anxious or agitated. Labs- Entire Visit 04/17/20 04/17/20 04/17/20 14:58 14:58 14:58 WBC 10.1 RBC 4.06 Hgb 11.6 L Hct 34.7 L MCV 85 MCH 28.6 MCHC 33.6 RDW 15.5 H Plt Count 157 Lymph % (Auto) 11.3 L Stephenson % (Auto) 5.3 Eos % (Auto) 0.9 Baso % (Auto) 0.1 Absolute Neuts (auto) 8.3 H Absolute Lymphs (auto) 1.1 Absolute Monos (auto) 0.5 Absolute Eos (auto) 0.1 Absolute Basos (auto) 0.0 Seg Neutrophils % 82.4 H Sodium 144.4 Potassium 3.1 L Chloride 110 H Carbon Dioxide 24 Anion Gap 10 BUN 52 H Creatinine 1.96 H Est GFR ( Amer) 29 L Est GFR (MDRD) Non-Af 24 L Glucose 105 Calcium 11.8 H Total Bilirubin 0.7 Direct Bilirubin 0.3 Neonat Total Bilirubin Not Reportable Neonat Direct Bilirubin Not Reportable Neonat Indirect Bili Not Reportable AST 20 ALT 14 Alkaline Phosphatase 118 Creatine Kinase 46 CK-MB (CK-2) 0.58 Troponin I 0.121 Total Protein 5.0 L Albumin 2.7 L Lipase Urine Color Urine Appearance Urine pH Ur Specific [place] Urine Protein Urine Glucose (UA) Urine Ketones Urine Blood Urine Nitrite Urine Bilirubin Urine Urobilinogen Ur Leukocyte Esterase Urine WBC (Auto) U Hyaline Cast (Auto) Urine Mucus (Auto) Urine Ascorbic Acid 04/17/20 04/17/20 04/18/20 15:12 18:03 08:04 WBC 8.9 RBC 4.02 Hgb 11.3 L Hct 34.5 L MCV 86 MCH 28.1 MCHC 32.7 RDW 16.3 H Plt Count 141 L Lymph % (Auto) Stephenson % (Auto) Eos % (Auto) Baso % (Auto) Absolute Neuts (auto) Absolute Lymphs (auto) Absolute Monos (auto) Absolute Eos (auto) Absolute Basos (auto) Seg Neutrophils % Sodium Potassium Chloride Carbon Dioxide Anion Gap BUN Creatinine Est GFR ( Amer) Est GFR (MDRD) Non-Af Glucose Calcium Total Bilirubin Direct Bilirubin Neonat Total Bilirubin Neonat Direct Bilirubin Neonat Indirect Bili AST ALT Alkaline Phosphatase Creatine Kinase CK-MB (CK-2) Troponin I 0.104 Total Protein Albumin Lipase Urine Color YELLOW Urine Appearance CLEAR Urine pH 5.0 Ur Specific [place] 1.017 Urine Protein 30 H Urine Glucose (UA) NEGATIVE Urine Ketones NEGATIVE Urine Blood NEGATIVE Urine Nitrite NEGATIVE Urine Bilirubin NEGATIVE Urine Urobilinogen NEGATIVE Ur Leukocyte Esterase NEGATIVE Urine WBC (Auto) 0 U Hyaline Cast (Auto) 1 Urine Mucus (Auto) RARE Urine Ascorbic Acid NEGATIVE 04/18/20 04/18/20 08:04 08:04 WBC RBC Hgb Hct MCV MCH MCHC RDW Plt Count Lymph % (Auto) Stephenson % (Auto) Eos % (Auto) Baso % (Auto) Absolute Neuts (auto) Absolute Lymphs (auto) Absolute Monos (auto) Absolute Eos (auto) Absolute Basos (auto) Seg Neutrophils % Sodium 143.1 Potassium 3.6 Chloride 114 H Carbon Dioxide 19 L Anion Gap 10 BUN 45 H Creatinine 1.66 H Est GFR ( Amer) 36 L Est GFR (MDRD) Non-Af 29 L Glucose 83 Calcium 11.3 H Total Bilirubin 0.5 Direct Bilirubin 0.3 Neonat Total Bilirubin Not Reportable Neonat Direct Bilirubin Not Reportable Neonat Indirect Bili Not Reportable AST 21 ALT 13 Alkaline Phosphatase 108 Creatine Kinase CK-MB (CK-2) Troponin I Total Protein 5.1 L Albumin 2.5 L Lipase 544.5 H Urine Color Urine Appearance Urine pH Ur Specific [place] Urine Protein Urine Glucose (UA) Urine Ketones Urine Blood Urine Nitrite Urine Bilirubin Urine Urobilinogen Ur Leukocyte Esterase Urine WBC (Auto) U Hyaline Cast (Auto) Urine Mucus (Auto) Urine Ascorbic Acid Chest X-Ray 04/17/20 15:13 IMPRESSION: NO ACUTE RADIOGRAPHIC FINDING IN THE CHEST. Head CT 04/17/20 15:14 IMPRESSION: CHRONIC CHANGES OF ATROPHY AND MICROVASCULAR ISCHEMIA. NO ACUTE PROCESS. EVIDENCE OF ACUTE STROKE: NO. Abdomen/Pelvis CT 04/18/20 00:00 IMPRESSION: 1. Asymmetric soft tissue density within the pancreatic tail measuring approximately 2.3 x 1.4 cm with mild adjacent peripancreatic stranding. Findings may be sequelae of pancreatitis although pancreatic neoplasm is not excluded. Recommend correlation with lab values and patient's symptoms. Follow-up dedicated pancreatic protocol CT or MRI should be considered for further characterization. 2. No other evidence of acute intra-abdominal/pelvic process. 3. Status post cholecystectomy. EKG: Sinus rhythm with left bundle branch block pattern. EKG interpreted by me. ECHOCARDIOGRAM: Normal left single chamber size. There is no LVH. Normal LV ejection fraction of 55% to 60%. There is mild pulmonary hypertension. No aortic stenosis or aortic regurgitation. No pericardial effusion. IMPRESSION/RECOMMENDATION: 1. Borderline elevated troponin secondary to supply demand mismatch. This is most likely secondary to dehydration and acute on chronic renal failure. No evidence of non-ST elevation PA. Hence we will treat the underlying cause and not treat this is an acute coronary syndrome. 2. Acute on chronic kidney disease: Most likely secondary to dehydration. Recommend hydrating the patient. 3. Dehydration: Continue hydration 4. Hypertension: Patient at present with low blood pressure due to dehydration. 5. Chronic left bundle branch block pattern: This is chronic and not an acute change. 6. Abnormal pancreatic imaging by CT scan. 7. Altered mental status: Etiology. Recommendation. Medical regimen and management plan discussed with attending provider. Medications reviewed. Medical decision making is of high complexity. 60 minutes spent on this patient with more than 50% of time spent in direct patient care. Will follow
--- NOTE | 2020-04-18 21:23 | PDOC CONSULTATION ---
Consultation Consult Date: 04/18/20 Provider Consulted: PANDA HA Consult reason:: NANNETTE/CKD History of Present Illness Admission Date/PCP: 04/17/20 19:47 History of Present Illness: VIOLETA TIERNEY is a 84 year old female known to me with history of chronic kidney disease stage IV secondary to hypertensive nephrosclerosis, hypercalcemia with hyperparathyroidism, microalbuminuria, coronary artery disease, hyperlipidemia, Osteoarthritis and dementia who was admitted yesterday because of weakness and hypotension. Patient was unable to give me any history. She just told me that she just does not feel good. From admission records, the son brought him to the emergency room because he found her very weak and has not been eating or drinking fluids. The patient's main caregiver who is her daughter, unfortunately had a stroke and so the patient apparently went back to her old house. When the son checked on her she was noted to be very weak. There was some reports that patient has been falling a lot. Apparently the patient has not also been taking her medications but when the son gave her blood pressure medications her blood pressure decreased significantly causing more weakness so the son brought the patient to the emergency room. Initial work-up showed a negative chest x-ray, no acute findings and head CT, and abdominal CT scan showing right adrenal adenoma, mild adjacent peripancreatic stranding which may be a sequelae of pancreatitis in the ureter plasm cannot be excluded. Her BUN was 52, and creatinine of 1.96 with calcium of 11.8. Her potassium was low at 3.1. Her baseline creatinine ranges anywhere between 1.5-1.7 with EGFR ranging from 25-28. Patient states that she is tired. Otherwise she denies any pain, shortness of breath, nausea, vomiting nor diarrhea. She was unable to verbalize any problems with urination either. Past Medical History Cardiac Medical History: Reports: Coronary Artery Disease, Hyperlipidemia, Hypertension- itzel-vascular Pulmonary Medical History: Reports: Pneumonia Endocrine Medical History: Reports: Diabetes Mellitus Type 2 Renal/ Medical History: Reports: Chronic Kidney Disease Stage IV, Hypercalcemia, Proteinuria, Secondary Hyperparathyroidism Musculoskeltal Medical History: Reports: Arthritis Psychiatric Medical History: Reports: Depression Hematology Medical History: Reports Anemia of Chronic Kidney Disease Past Surgical History Past Surgical History: Reports: Cholecystectomy, Other - Right cataract surgery, skin lesion excision Social History Information Source: Dr. Sharp Lives with: Family Smoking Status: Never Smoker Electronic Cigarette use?: No Frequency of Alcohol Use: None Hx Recreational Drug Use: No Drugs: None Hx Prescription Drug Abuse: No Family History Family History: DM - Sister and brother, Hypertension - Parents, brother Parental Family History Reviewed: Yes Children Family History Reviewed: Yes Sibling(s) Family History Reviewed.: Yes Medication/Allergy Home Medications: Clonidine HCl [Catapres 0.2 mg Tablet] 0.2 mg PO TID 09/24/13 Hydralazine HCl [Apresoline 50 mg Tablet] 100 mg PO Q8 #90 tablet 09/26/13 Atenolol [Tenormin 50 mg Tablet] 50 mg PO Q12 04/18/20 Furosemide [Lasix 20 mg Tablet] 10 mg PO DAILY 04/18/20 Losartan Potassium 50 mg PO Q12 04/18/20 Mupirocin [Bactroban 2% Ointment 22 gm] 1 applic TOP TID 04/18/20 Rosuvastatin Calcium 5 mg PO QHS 04/18/20 Allergies/Adverse Reactions: No Known Allergies Allergy (Unverified 09/24/13 09:51) Review of Systems All systems: reviewed and no additional remarkable complaints except as stated Review of Systems: Constitutional: ABSENT: chills, fever(s), headache(s), weight gain, weight loss; reports of weakness, fatigue and anorexia Eyes: ABSENT: visual disturbances Ears: ABSENT: hearing changes Cardiovascular: ABSENT: chest pain, dyspnea on exertion, edema, orthropnea, palpitations Respiratory: ABSENT: cough, dyspnea, hemoptysis Gastrointestinal: ABSENT: abdominal pain, constipation, diarrhea, hematemesis, hematochezia, nausea, vomiting Genitourinary: ABSENT: dysuria, hematuria Musculoskeletal: ABSENT: joint swelling Integumentary: ABSENT: rash, wounds Neurological: ABSENT: abnormal gait, abnormal speech, confusion, dizziness, focal weakness, numbness, syncope Psychiatric: ABSENT: anxiety, depression Endocrine: ABSENT: cold intolerance, heat intolerance, polydipsia, polyuria Hematologic/Lymphatic: ABSENT: easy bleeding, easy bruising, lymphadenopathy Physical Exam Vital Signs: Temp Pulse Resp BP Pulse Ox 97.3 F 64 18 153/61 H 98 04/18/20 08:42 04/18/20 08:42 04/18/20 08:42 04/18/20 08:42 04/18/20 08:42 Intake & Output 04/17/20 04/18/20 04/19/20 06:59 06:59 06:59 Intake Total 1260 Output Total 0 Balance 1260 Weight 78.3 kg Exam: General appearance: No acute distress, cooperative, appears to be tired without energy, fairly developed and fairly nourished Head exam: PRESENT: atraumatic, normocephalic Eye exam: PRESENT: Conjunctiva pale, EOMI, PERRLA. ABSENT: conjunctival injection, scleral icterus Mouth exam: PRESENT: moist, neck supple, tongue midline Neck exam: PRESENT: full ROM. ABSENT: carotid bruit, JVD, lymphadenopathy, thyromegaly Respiratory exam: PRESENT: clear to auscultation bilaterally. ABSENT: rales, rhonchi, stridor, wheezes Cardiovascular exam: PRESENT: RRR, +S1, +S2. ABSENT: systolic murmur Pulses: PRESENT: normal radial pulses, normal dorsalis pedis pulses GI/Abdominal exam: PRESENT: normal bowel sounds, soft. ABSENT: guarding, mass, tenderness Rectal exam: Deferred Extremities exam: PRESENT: full ROM. Left leg ulcer ABSENT: calf tenderness, pedal edema Musculoskeletal: PRESENT: full ROM. ABSENT: deformity Neurological exam: PRESENT: alert, Awake, Oriented to person, Oriented to place, but not to time, reflexes normal, CN II-XII grossly intact. ABSENT: motor sensory deficit Psychiatric exam: PRESENT: appropriate affect, normal mood. ABSENT: homicidal ideation, suicidal ideation Skin exam: PRESENT: intact, dry, warm. ABSENT: rash Results Laboratory Results: 04/18/20 08:04 04/18/20 08:04 04/17/20 04/17/20 04/17/20 14:58 14:58 15:12 WBC 10.1 RBC 4.06 Hgb 11.6 L Hct 34.7 L MCV 85 MCH 28.6 MCHC 33.6 RDW 15.5 H Plt Count 157 Seg Neutrophils % 82.4 H Sodium 144.4 Potassium 3.1 L Chloride 110 H Carbon Dioxide 24 Anion Gap 10 BUN 52 H Creatinine 1.96 H Est GFR ( Amer) 29 L Glucose 105 Calcium 11.8 H Total Bilirubin 0.7 AST 20 Alkaline Phosphatase 118 Total Protein 5.0 L Albumin 2.7 L Urine Color YELLOW Urine Appearance CLEAR Urine pH 5.0 Ur Specific [place] 1.017 Urine Protein 30 H Urine Glucose (UA) NEGATIVE Urine Ketones NEGATIVE Urine Blood NEGATIVE Urine Nitrite NEGATIVE Ur Leukocyte Esterase NEGATIVE Urine WBC (Auto) 0 04/18/20 04/18/20 08:04 08:04 WBC 8.9 RBC 4.02 Hgb 11.3 L Hct 34.5 L MCV 86 MCH 28.1 MCHC 32.7 RDW 16.3 H Plt Count 141 L Seg Neutrophils % Sodium 143.1 Potassium 3.6 Chloride 114 H Carbon Dioxide 19 L Anion Gap 10 BUN 45 H Creatinine 1.66 H Est GFR ( Amer) 36 L Glucose 83 Calcium 11.3 H Total Bilirubin AST Alkaline Phosphatase Total Protein Albumin Urine Color Urine Appearance Urine pH Ur Specific [place] Urine Protein Urine Glucose (UA) Urine Ketones Urine Blood Urine Nitrite Ur Leukocyte Esterase Urine WBC (Auto) 04/17/20 04/17/20 04/17/20 14:58 14:58 18:03 Creatine Kinase 46 CK-MB (CK-2) 0.58 Troponin I 0.121 0.104 Impressions: Chest X-Ray 04/17/20 15:13 IMPRESSION: NO ACUTE RADIOGRAPHIC FINDING IN THE CHEST. Head CT 04/17/20 15:14 IMPRESSION: CHRONIC CHANGES OF ATROPHY AND MICROVASCULAR ISCHEMIA. NO ACUTE PROCESS. EVIDENCE OF ACUTE STROKE: NO. Abdomen/Pelvis CT 04/18/20 00:00 IMPRESSION: 1. Asymmetric soft tissue density within the pancreatic tail measuring approximately 2.3 x 1.4 cm with mild adjacent peripancreatic stranding. Findings may be sequelae of pancreatitis although pancreatic neoplasm is not excluded. Recommend correlation with lab values and patient's symptoms. Follow-up dedicated pancreatic protocol CT or MRI should be considered for further characterization. 2. No other evidence of acute intra-abdominal/pelvic process. 3. Status post cholecystectomy. Assessment & Plan - Diagnosis (1) Acute kidney injury superimposed on chronic kidney disease Is this a current diagnosis for this admission?: Yes Plan: Likely secondary to prerenal factors due to dehydration and poor oral intake. Creatinine has improved from 1.96 to 1.66 with IV fluid hydration. Continue IV fluids for now. No need of any renal replacement therapy. Chronic kidney disease stage IV secondary to hypertensive nephrosclerosis with baseline creatinine usually around 1.5-1.7. (2) Dehydration Is this a current diagnosis for this admission?: Yes Plan: Due to poor oral intake. Needs hydration. (3) Generalized weakness Is this a current diagnosis for this admission?: Yes (4) Hypercalcemia Is this a current diagnosis for this admission?: Yes Plan: Chronic with associated hyperparathyroidism for which the patient opted not to do any further work-up nor intervention. This can also worsen with dehydration. (5) Metabolic acidosis Is this a current diagnosis for this admission?: Yes Plan: Possibly due to saline as the patient's initial bicarbonate was normal at 24. I will change her IV fluids to 0.45 saline. (6) Hypertension Is this a current diagnosis for this admission?: Yes Plan: Blood pressure is relatively low at this time due to dehydration and volume depletion. Agree with holding blood pressure medications. (7) Anemia in chronic kidney disease (CKD) Is this a current diagnosis for this admission?: Yes Plan: Mild with possible hemoconcentration initially. (8) Candidiasis of female genitalia Is this a current diagnosis for this admission?: Yes Plan: Management per Dr. Schaeffer. (9) Coronary artery disease Qualifiers: Coronary Disease-Associated Artery/Lesion type: unspecified vessel or lesion type Associated angina: without angina Is this a current diagnosis for this admission?: Yes (10) Dementia Qualifiers: Dementia type: unspecified type Dementia behavioral disturbance: without behavioral disturbance Qualified Code(s): F03.90 - Unspecified dementia without behavioral disturbance Is this a current diagnosis for this admission?: Yes - Notes Notes: Thank you very much for this consultation.
[2020-04-18] MEDS: ATORVASTATIN CALCIUM 10 MG TABLET PO SCH (21:36)
[2020-04-18] MEDS ORDERED: (PENDING PHARMACY ID) (Rosuvastatin Calcium [Rosuvastatin Calcium] 5 MG) PO SCH (22:00)
[2020-04-19] MEDS: 1/2 NORMAL SALINE 1,000 ML IV PRN ×3 (04:40→21:16)
[2020-04-19 05:50] LABS: ABSOLUTE EOSINOPHILS # (AUTO) 0.1 10^3/uL (0.0-0.6); ABSOLUTE LYMPHOCYTES (AUTO) 1.4 10^3/uL (0.5-4.7); ABSOLUTE MONOCYTES (AUTO) 0.6 10^3/uL (0.1-1.4); ABSOLUTE NEUT (AUTO) 8.6 10^3/uL (1.7-8.2); BASOPHILS % (AUTO) 0.1 % (0-2); EOSINOPHILS % (AUTO) 1.3 % (0-6); HEMATOCRIT 38.5 % (36.0-47.0); HEMOGLOBIN 12.7 g/dL (12.0-15.5); LYMPHOCYTES % (AUTO) 13.2 % (13-45); MEAN CORPUSCULAR HEMOGLOBIN 27.9 pg (27.0-33.4); MEAN CORPUSCULAR HGB CONC 32.9 g/dL (32.0-36.0); MEAN CORPUSCULAR VOLUME 85 fl (80-97); MONOCYTES % (AUTO) 5.4 % (3-13); PLATELET COUNT 133 10^3/uL (150-450); RED BLOOD COUNT 4.55 10^6/uL (3.72-5.28); RED CELL DISTRIBUTION WIDTH 15.4 % (11.5-14.0); TOTAL CELLS COUNTED % (AUTO) 100 %; WHITE BLOOD COUNT 10.7 10^3/uL (4.0-10.5)
[2020-04-19 05:52] LABS: ANION GAP 9 (5-19); BLOOD UREA NITROGEN 35 mg/dL (7-20); CALCIUM 11.8 mg/dL (8.4-10.2); CARBON DIOXIDE 20 mmol/L (22-30); CHLORIDE 113 mmol/L (98-107); GLUCOSE 93 mg/dL (75-110); POTASSIUM 3.2 mmol/L (3.6-5.0)
--- NOTE | 2020-04-19 08:57 | PDOC PROGRESS REPORT ---
Subjective Progress Note for:: 04/19/20 Subjective:: Patient is currently doing fair Denied any chest pain no short of breath Little confused His calcium is still elevated 11.8 Denied any abdominal pain no nausea no vomiting Reason For Visit: GENERALIZED WEAKNESS,DEHYDRATION Physical Exam Vital Signs: Temp Pulse Resp BP Pulse Ox 98.0 F 80 16 189/96 H 99 04/18/20 22:49 04/19/20 08:08 04/19/20 08:08 04/19/20 08:08 04/19/20 08:08 Intake & Output 04/18/20 04/19/20 04/20/20 06:59 06:59 06:59 Intake Total 1260 2830 Output Total 0 725 Balance 1260 2105 Weight 78.3 kg 82.1 kg General appearance: PRESENT: no acute distress, well-developed, well-nourished Head exam: PRESENT: atraumatic, normocephalic Eye exam: PRESENT: conjunctiva pink, EOMI, PERRLA. ABSENT: scleral icterus Ear exam: PRESENT: normal external ear exam Mouth exam: PRESENT: moist, tongue midline Neck exam: PRESENT: full ROM. ABSENT: carotid bruit, JVD, lymphadenopathy, thyromegaly Respiratory exam: PRESENT: clear to auscultation ying Cardiovascular exam: PRESENT: RRR. ABSENT: diastolic murmur, rubs, systolic murmur Vascular exam: PRESENT: normal capillary refill GI/Abdominal exam: PRESENT: normal bowel sounds, soft. ABSENT: distended, guarding, mass, organolmegaly, rebound, tenderness Rectal exam: PRESENT: deferred Neurological exam: PRESENT: alert, awake, oriented to person. ABSENT: motor sensory deficit Psychiatric exam: PRESENT: appropriate affect, normal mood. ABSENT: homicidal ideation, suicidal ideation Skin exam: PRESENT: dry, intact, warm. ABSENT: cyanosis, rash Results Laboratory Results: 04/19/20 04:50 04/19/20 04:50 04/18/20 04/19/20 04/19/20 08:04 04:50 04:50 WBC 10.7 H RBC 4.55 Hgb 12.7 Hct 38.5 MCV 85 MCH 27.9 MCHC 32.9 RDW 15.4 H Plt Count 133 L Seg Neutrophils % 80.0 H Sodium 142.3 Potassium 3.2 L Chloride 113 H Carbon Dioxide 20 L Anion Gap 9 BUN 35 H Creatinine 1.63 H Est GFR ( Amer) 36 L Glucose 93 Calcium 11.8 H Total Bilirubin 0.5 AST 21 Alkaline Phosphatase 108 Total Protein 5.1 L Albumin 2.5 L Lipase 544.5 H 04/17/20 04/17/20 04/17/20 14:58 14:58 18:03 Creatine Kinase 46 CK-MB (CK-2) 0.58 Troponin I 0.121 0.104 Impressions: Chest X-Ray 04/17/20 15:13 IMPRESSION: NO ACUTE RADIOGRAPHIC FINDING IN THE CHEST. Head CT 04/17/20 15:14 IMPRESSION: CHRONIC CHANGES OF ATROPHY AND MICROVASCULAR ISCHEMIA. NO ACUTE PROCESS. EVIDENCE OF ACUTE STROKE: NO. Abdomen/Pelvis CT 04/18/20 00:00 IMPRESSION: 1. Asymmetric soft tissue density within the pancreatic tail measuring approximately 2.3 x 1.4 cm with mild adjacent peripancreatic stranding. Findings may be sequelae of pancreatitis although pancreatic neoplasm is not excluded. Recommend correlation with lab values and patient's symptoms. Follow-up dedicated pancreatic protocol CT or MRI should be considered for further characterization. 2. No other evidence of acute intra-abdominal/pelvic process. 3. Status post cholecystectomy. Assessment & Plan - Diagnosis (1) Acute pancreatitis Qualifiers: Acute pancreatitis complication: unspecified Is this a current diagnosis for this admission?: Yes Plan: We will recheck the lipase (2) Acute renal failure superimposed on chronic kidney disease Qualifiers: Chronic kidney disease stage: stage 4 (severe) Is this a current diagnosis for this admission?: Yes Plan: Continues IV fluid (3) Essential (primary) hypertension Is this a current diagnosis for this admission?: Yes Plan: Will restart the atenolol 50 mg p.o. daily (4) Coronary artery disease Qualifiers: Coronary Disease-Associated Artery/Lesion type: unspecified vessel or lesion type Associated angina: without angina Is this a current diagnosis for this admission?: Yes Plan: Continues follow-up with the Dr. HANSEN (5) Elevated troponin Is this a current diagnosis for this admission?: Yes (6) Dementia Qualifiers: Dementia type: unspecified type Dementia behavioral disturbance: without behavioral disturbance Qualified Code(s): F03.90 - Unspecified dementia without behavioral disturbance Is this a current diagnosis for this admission?: Yes (7) Dehydration Is this a current diagnosis for this admission?: Yes (8) Generalized weakness Is this a current diagnosis for this admission?: Yes (9) Candidiasis of female genitalia Is this a current diagnosis for this admission?: Yes (10) Hypercalcemia Is this a current diagnosis for this admission?: Yes Plan: Continues IV fluid most likely due to underlying chronic kidney disease follow with the nephrology - Time Time Spent with patient: 15-24 minutes Level of Care: IMCU Medications reviewed and adjusted accordingly: Yes Anticipated discharge: SNF Anticipated DC Timeframe: Other - Plan Summary Plan Summary: Continues to current medications we will consider do the MRI of the abdomen to assess the pancreas once the patient's kidney function is getting better
[2020-04-19] MEDS ORDERED: POTASSIUM CHLORIDE 10 MEQ TABLET.ER PO ONE (09:00)
[2020-04-19] MEDS: CEFTRIAXONE 1 GM/D5W RTU 1 GM/50 ML RTUPB IV SCH (09:27)
[2020-04-19] MEDS: FLUCONAZOLE 100 MG TABLET PO SCH (09:27)
[2020-04-19] MEDS: ATENOLOL 50 MG TABLET PO SCH ×3 (09:27→22:00)
[2020-04-19] MEDS: PANTOPRAZOLE SODIUM 40 MG VIAL IV SCH ×2 (09:27→21:01)
[2020-04-19] MEDS: NYSTATIN TOPICAL POWDER 15 GM TP SCH ×2 (09:42→17:08)
[2020-04-19] MEDS: MUPIROCIN 2% OINTMENT 22 GM TOP SCH ×3 (09:43→17:08)
--- NOTE | 2020-04-19 11:35 | PDOC PROGRESS REPORT ---
Subjective Progress Note for:: 04/19/20 Subjective:: Patient was seen laying in bed this morning. She did not appear to be in any distress. She did deny any SOB. Currently receiving fluids for dehydration and acute pancreatitis. Denies any nausea vomiting. Reason For Visit: GENERALIZED WEAKNESS,DEHYDRATION Physical Exam Vital Signs: Temp Pulse Resp BP Pulse Ox 98.0 F 80 16 189/96 H 99 04/19/20 10:00 04/19/20 08:08 04/19/20 08:08 04/19/20 08:08 04/19/20 08:08 Intake & Output 04/18/20 04/19/20 04/20/20 06:59 06:59 06:59 Intake Total 1260 2830 50 Output Total 0 725 Balance 1260 2105 50 Weight 78.3 kg 82.1 kg General appearance: PRESENT: no acute distress, well-developed, well-nourished Mouth exam: PRESENT: dry mucosa, neck supple Neck exam: ABSENT: JVD, tracheal deviation Respiratory exam: PRESENT: clear to auscultation ying. ABSENT: crackles, rales, rhonchi, wheezes Cardiovascular exam: PRESENT: +S1, +S2 GI/Abdominal exam: PRESENT: soft. ABSENT: tenderness Extremities exam: ABSENT: pedal edema, +1 edema, +2 edema Neurological exam: PRESENT: alert, awake. ABSENT: oriented to person, oriented to place, oriented to time, oriented to situation Psychiatric exam: PRESENT: appropriate affect Skin exam: PRESENT: dry, intact, warm. ABSENT: cyanosis Results Laboratory Results: 04/19/20 04:50 04/19/20 04:50 04/18/20 04/19/20 04/19/20 08:04 04:50 04:50 WBC 10.7 H RBC 4.55 Hgb 12.7 Hct 38.5 MCV 85 MCH 27.9 MCHC 32.9 RDW 15.4 H Plt Count 133 L Seg Neutrophils % 80.0 H Sodium 142.3 Potassium 3.2 L Chloride 113 H Carbon Dioxide 20 L Anion Gap 9 BUN 35 H Creatinine 1.63 H Est GFR ( Amer) 36 L Glucose 93 Calcium 11.8 H Total Bilirubin 0.5 AST 21 Alkaline Phosphatase 108 Total Protein 5.1 L Albumin 2.5 L Lipase 544.5 H 04/19/20 04:50 WBC RBC Hgb Hct MCV MCH MCHC RDW Plt Count Seg Neutrophils % Sodium Potassium Chloride Carbon Dioxide Anion Gap BUN Creatinine Est GFR ( Amer) Glucose Calcium Total Bilirubin Cancelled AST Cancelled Alkaline Phosphatase Cancelled Total Protein Cancelled Albumin Cancelled Lipase Cancelled 04/17/20 04/17/20 04/17/20 14:58 14:58 18:03 Creatine Kinase 46 CK-MB (CK-2) 0.58 Troponin I 0.121 0.104 Impressions: Chest X-Ray 04/17/20 15:13 IMPRESSION: NO ACUTE RADIOGRAPHIC FINDING IN THE CHEST. Head CT 04/17/20 15:14 IMPRESSION: CHRONIC CHANGES OF ATROPHY AND MICROVASCULAR ISCHEMIA. NO ACUTE PROCESS. EVIDENCE OF ACUTE STROKE: NO. Abdomen/Pelvis CT 04/18/20 00:00 IMPRESSION: 1. Asymmetric soft tissue density within the pancreatic tail measuring approximately 2.3 x 1.4 cm with mild adjacent peripancreatic stranding. Findings may be sequelae of pancreatitis although pancreatic neoplasm is not excluded. Recommend correlation with lab values and patient's symptoms. Follow-up dedicated pancreatic protocol CT or MRI should be considered for further characterization. 2. No other evidence of acute intra-abdominal/pelvic process. 3. Status post cholecystectomy. Assessment & Plan - Diagnosis (1) Acute kidney injury superimposed on chronic kidney disease Is this a current diagnosis for this admission?: Yes Plan: nonoliguric, looked to have been from dehydration. At this time she is back to baseline according the records at the office. Will decrease fluids to 50mL an hour to just keep her hydrated and to not over hydrate leading fluid overload. (2) Acute pancreatitis Qualifiers: Acute pancreatitis complication: unspecified Is this a current diagnosis for this admission?: Yes Plan: on IV fluids (3) Dehydration Is this a current diagnosis for this admission?: Yes Plan: decreasing to 50mL an hour (4) Metabolic acidosis Is this a current diagnosis for this admission?: Yes Plan: will monitor as it is slightly better, may need to start on PO bicarb with the replacement of potassium. (5) Hypokalemia Plan: will give a k-rider along with the PO potassium that she received. (6) Hypercalcemia Is this a current diagnosis for this admission?: Yes Plan: chronically high, previously turned down work up for hyperparathyroidism. (7) Essential (primary) hypertension Is this a current diagnosis for this admission?: Yes Plan: restarted on atenolol this morning. Will leave bp medications adjustments to her primary. (8) Dementia Qualifiers: Dementia type: unspecified type Dementia behavioral disturbance: without behavioral disturbance Qualified Code(s): F03.90 - Unspecified dementia without behavioral disturbance Is this a current diagnosis for this admission?: Yes
[2020-04-19] MEDS ORDERED: POTASSI CL 20 MEQ/50 ML RIDER 20 MEQ/50 ML RTUPB IV ONE (12:00)
[2020-04-19 14:23] LABS: ALBUMIN 2.7 g/dL (3.5-5.0); ALKALINE PHOSPHATASE 120 U/L (38-126); ASPARTATE AMINO TRANSFERASE 19 U/L (14-36); BILIRUBIN,DIRECT 0.2 mg/dL (0.0-0.4); BILIRUBIN,TOTAL 0.4 mg/dL (0.2-1.3); TOTAL PROTEIN 5.4 g/dL (6.3-8.2)
[2020-04-19] MEDS ORDERED: CEFEPIME 1 GM/D5W RTU 1 GM/50 ML RTUPB IV SCH (15:00)
[2020-04-19] MEDS: HYDRALAZINE HCL 50 MG TABLET PO SCH ×3 (15:30→22:00)
[2020-04-19] MEDS: CEFEPIME 1 GM/D5W RTU 1 GM/50 ML RTUPB IV SCH (17:07)
[2020-04-19] MEDS: COLLAGENASE CLOSTRIDIUM HIST. OINT 30 GM TP SCH (18:10)
[2020-04-19] MEDS: ATORVASTATIN CALCIUM 10 MG TABLET PO SCH ×2 (21:01→22:58)
--- NOTE | 2020-04-19 21:13 | Progress Note ---
Provider Note Provider Note: CARDIOLOGY PROGRESS NOTE by Dr. Mar Valente on 04/19/2020. Subjective: The patient is somnolent but when called by name awakens. She denies chest pain. She does not appear to be in any acute distress. There is no arrhythmias seen on the monitor. PHYSICAL EXAMINATION: The patient is mildly obese. In no acute distress She is pleasantly confused. Selected Entries 04/19/20 19:39 Temperature 98.5 F Temperature Axillary Source Pulse Rate 96 Respiratory 14 Rate Blood Pressure 145/86 H Blood Pressure 105 Mean BP Location Right Arm BP Position Supine O2 Sat by Pulse 100 Oximetry Oxygen Delivery Room Air Method HEAD: Is atraumatic normocephalic. EYES: Nipples are equal round regular reactive to light and accommodation. Extraocular movements are normal. There is no conjunctival pallor. There is no scleral icterus. EARS: Tympanic membranes are intact. External auditory canals are clear. NOSE: There is no deviated nasal septum. There is no inflammation nasal mucous membrane. MOUTH: Mucous membranes of the mouth and tongue are dry. There is no bleeding from the gums. THROAT: There is no redness of the oropharynx. There is no exudates. SKIN: There is no skin rashes. There is no skin lesions. There is no petechia or ecchymosis. NECK: Is supple. There is no JVD. Carotids are equal there is no bruits. There is no lymphadenopathy. There is no goiter. There is no lymphadenopathy. There is no accessory muscle respiration use. Trachea central. LUNGS: Clear to auscultation percussion without any rhonchi rales or wheezing. HEART: S1-S2 is heard. There is no S3 gallop. There is no S4 gallop. Systolic murmur left sternal border and the apex there is no rub. ABDOMEN: Soft. There is no hepatosplenomegaly. Bowel sounds are well heard. EXTREMITIES: Femorals are deep. Femorals are diminished. There is no femoral bruits. Leg pulses slightly diminished. There is no pedal edema. There is fungal infection of the patient's groin. There is no cyanosis or clubbing. There is no DVT or cellulitis. There is no calf tenderness. MEDICAL AND HEALTH SERVICES MANAGER: The patient is conscious, but drowsy, but when called by name opens her eyes. But is pleasantly confused. There is no focal deficits. PSYCHIATRIC: The patient is drowsy but does not appear to be agitated or anxious. EKG: Sinus rhythm. Left bundle branch block pattern. Labs- All tests 24 hr 04/19/20 04/19/20 04/19/20 04:50 04:50 04:50 WBC 10.7 H RBC 4.55 Hgb 12.7 Hct 38.5 MCV 85 MCH 27.9 MCHC 32.9 RDW 15.4 H Plt Count 133 L Lymph % (Auto) 13.2 Smyth % (Auto) 5.4 Eos % (Auto) 1.3 Baso % (Auto) 0.1 Absolute Neuts (auto) 8.6 H Absolute Lymphs (auto) 1.4 Absolute Monos (auto) 0.6 Absolute Eos (auto) 0.1 Absolute Basos (auto) 0.0 Seg Neutrophils % 80.0 H Sodium 142.3 Potassium 3.2 L Chloride 113 H Carbon Dioxide 20 L Anion Gap 9 BUN 35 H Creatinine 1.63 H Est GFR ( Amer) 36 L Est GFR (MDRD) Non-Af 30 L Glucose 93 Calcium 11.8 H Total Bilirubin Cancelled Direct Bilirubin Cancelled Neonat Total Bilirubin Cancelled Neonat Direct Bilirubin Cancelled Neonat Indirect Bili Cancelled AST Cancelled ALT Cancelled Alkaline Phosphatase Cancelled Total Protein Cancelled Albumin Cancelled Lipase Cancelled 04/19/20 12:57 WBC RBC Hgb Hct MCV MCH MCHC RDW Plt Count Lymph % (Auto) Smyth % (Auto) Eos % (Auto) Baso % (Auto) Absolute Neuts (auto) Absolute Lymphs (auto) Absolute Monos (auto) Absolute Eos (auto) Absolute Basos (auto) Seg Neutrophils % Sodium Potassium Chloride Carbon Dioxide Anion Gap BUN Creatinine Est GFR ( Amer) Est GFR (MDRD) Non-Af Glucose Calcium Total Bilirubin 0.4 Direct Bilirubin 0.2 Neonat Total Bilirubin Not Reportable Neonat Direct Bilirubin Not Reportable Neonat Indirect Bili Not Reportable AST 19 ALT 13 Alkaline Phosphatase 120 Total Protein 5.4 L Albumin 2.7 L Lipase 5420.0 H Chest X-Ray 04/17/20 15:13 IMPRESSION: NO ACUTE RADIOGRAPHIC FINDING IN THE CHEST. Head CT 04/17/20 15:14 IMPRESSION: CHRONIC CHANGES OF ATROPHY AND MICROVASCULAR ISCHEMIA. NO ACUTE PROCESS. EVIDENCE OF ACUTE STROKE: NO. Abdomen/Pelvis CT 04/18/20 00:00 IMPRESSION: 1. Asymmetric soft tissue density within the pancreatic tail measuring approximately 2.3 x 1.4 cm with mild adjacent peripancreatic stranding. Findings may be sequelae of pancreatitis although pancreatic neoplasm is not excluded. Recommend correlation with lab values and patient's symptoms. Follow-up dedicated pancreatic protocol CT or MRI should be considered for further characterization. 2. No other evidence of acute intra-abdominal/pelvic process. 3. Status post cholecystectomy. IMPRESSION/RECOMMENDATION: 1. Borderline elevated troponin secondary to supply demand mismatch. This is most likely secondary to dehydration and acute on chronic renal failure. No evidence of non-ST elevation PR. Hence we will treat the underlying cause and not treat this is an acute coronary syndrome. The troponin is trended down. 2. Acute on chronic kidney disease: Most likely secondary to dehydration. Re commend hydrating the patient. 3. Dehydration: Continue hydration 4. Hypertension: Patient at present with low blood pressure due to dehydration. 5. Chronic left bundle branch block pattern: This is chronic and not an acute change. 6. Abnormal pancreatic imaging by CT scan. 7. Altered mental status: Etiology. Recommendation. Medical regimen and management plan discussed with attending provider. Medications reviewed. Medical decision making is of moderate complexity. 40 minutes spent on this patient with more than 50% of time spent in direct patient care. Will follow
[2020-04-20] MEDS: HYDRALAZINE HCL 50 MG TABLET PO SCH ×3 (05:00→21:04)
[2020-04-20 06:53] LABS: HEMATOCRIT 40.8 % (36.0-47.0); HEMOGLOBIN 13.1 g/dL (12.0-15.5); MEAN CORPUSCULAR HEMOGLOBIN 27.3 pg (27.0-33.4); MEAN CORPUSCULAR HGB CONC 32.2 g/dL (32.0-36.0); MEAN CORPUSCULAR VOLUME 85 fl (80-97); PLATELET COUNT 142 10^3/uL (150-450); RED CELL DISTRIBUTION WIDTH 15.9 % (11.5-14.0)
[2020-04-20 07:16] LABS: ABSOLUTE LYMPHOCYTES# (MANUAL) 1.1 10^3/uL (0.5-4.7); ABSOLUTE MONOCYTES # (MANUAL) 0.5 10^3/uL (0.1-1.4); BASOPHILS % (MANUAL) 0 % (0-2); EOSINOPHILS % (MANUAL) 0 % (0-6); LYMPHOCYTES % (MANUAL) 7 % (13-45); MONOCYTES % (MANUAL) 3 % (3-13); SEGMENTED NEUTROPHILS % (MAN) 90 % (42-78); TOTAL CELLS COUNTED 100
[2020-04-20 07:17] LABS: ANISOCYTOSIS 1+; PLATELET COMMENT DECREASED; TOXIC GRANULATION SLIGHT; TOXIC VACUOLATION PRESENT
[2020-04-20 07:20] LABS: ANION GAP 8 (5-19); BLOOD UREA NITROGEN 39 mg/dL (7-20); CARBON DIOXIDE 19 mmol/L (22-30); CHLORIDE 114 mmol/L (98-107); GLUCOSE 101 mg/dL (75-110); POTASSIUM 3.9 mmol/L (3.6-5.0)
[2020-04-20 07:39] LABS: CALCIUM 12.1 mg/dL (8.4-10.2)
--- NOTE | 2020-04-20 09:09 | PDOC PROGRESS REPORT ---
Subjective Progress Note for:: 04/20/20 Subjective:: Patient is a little bit more lethargic and confused today And have abdominal MRI was done still pending result for the pancreas Calcium level is 12.1 As per discussed with the Dr. marcial Have extensive work-up done for the hypercalcemia including the most likely hyperparathyroidism in the patients do not want to pursue it and the family do not want to pursue for any surgical options as outpatient Patient's at this point will extend discussed with the son who is the Currently on a bedside and discussed with the daughter was admitted currently in the hospital currently patient is DNR/DNI Reason For Visit: GENERALIZED WEAKNESS,DEHYDRATION Physical Exam Vital Signs: Temp Pulse Resp BP Pulse Ox 97.6 F 72 19 181/98 H 99 04/20/20 08:41 04/20/20 08:41 04/20/20 08:41 04/20/20 08:41 04/20/20 08:41 Intake & Output 04/19/20 04/20/20 04/21/20 06:59 06:59 06:59 Intake Total 2830 1279 Output Total 725 325 Balance 2105 954 Weight 82.1 kg 79.4 kg General appearance: PRESENT: no acute distress Eye exam: PRESENT: PERRLA Respiratory exam: PRESENT: clear to auscultation ying Cardiovascular exam: PRESENT: +S1, +S2 GI/Abdominal exam: PRESENT: normal bowel sounds, soft Neurological exam: PRESENT: altered Skin exam: PRESENT: dry Results Laboratory Results: 04/20/20 06:00 04/20/20 06:00 04/19/20 04/19/20 04/20/20 04:50 12:57 06:00 WBC RBC Hgb Hct MCV MCH MCHC RDW Plt Count Seg Neutrophils % Sodium 141.2 Potassium 3.9 Chloride 114 H Carbon Dioxide 19 L Anion Gap 8 BUN 39 H Creatinine 2.12 H Est GFR ( Amer) 27 L Glucose 101 Calcium 12.1 H* Total Bilirubin Cancelled 0.4 AST Cancelled 19 Alkaline Phosphatase Cancelled 120 Total Protein Cancelled 5.4 L Albumin Cancelled 2.7 L Lipase Cancelled 5420.0 H 2645.1 H 04/20/20 06:00 WBC 16.0 H RBC 4.80 Hgb 13.1 Hct 40.8 MCV 85 MCH 27.3 MCHC 32.2 RDW 15.9 H Plt Count 142 L Seg Neutrophils % Not Reportable Sodium Potassium Chloride Carbon Dioxide Anion Gap BUN Creatinine Est GFR ( Amer) Glucose Calcium Total Bilirubin AST Alkaline Phosphatase Total Protein Albumin Lipase 04/17/20 04/17/20 04/17/20 14:58 14:58 18:03 Creatine Kinase 46 CK-MB (CK-2) 0.58 Troponin I 0.121 0.104 Impressions: Chest X-Ray 04/17/20 15:13 IMPRESSION: NO ACUTE RADIOGRAPHIC FINDING IN THE CHEST. Head CT 04/17/20 15:14 IMPRESSION: CHRONIC CHANGES OF ATROPHY AND MICROVASCULAR ISCHEMIA. NO ACUTE PROCESS. EVIDENCE OF ACUTE STROKE: NO. Abdomen/Pelvis CT 04/18/20 00:00 IMPRESSION: 1. Asymmetric soft tissue density within the pancreatic tail measuring approximately 2.3 x 1.4 cm with mild adjacent peripancreatic stranding. Findings may be sequelae of pancreatitis although pancreatic neoplasm is not excluded. Recommend correlation with lab values and patient's symptoms. Follow-up dedicated pancreatic protocol CT or MRI should be considered for further characterization. 2. No other evidence of acute intra-abdominal/pelvic process. 3. Status post cholecystectomy. Assessment & Plan - Diagnosis (1) Acute pancreatitis Qualifiers: Acute pancreatitis complication: unspecified Is this a current diagnosis for this admission?: Yes (2) Acute renal failure superimposed on chronic kidney disease Qualifiers: Chronic kidney disease stage: stage 4 (severe) Is this a current diagnosis for this admission?: Yes (3) Essential (primary) hypertension Is this a current diagnosis for this admission?: Yes (4) Coronary artery disease Qualifiers: Coronary Disease-Associated Artery/Lesion type: unspecified vessel or lesion type Associated angina: without angina Is this a current diagnosis for this admission?: Yes (5) Elevated troponin Is this a current diagnosis for this admission?: Yes (6) Dementia Qualifiers: Dementia type: unspecified type Dementia behavioral disturbance: without behavioral disturbance Qualified Code(s): F03.90 - Unspecified dementia without behavioral disturbance Is this a current diagnosis for this admission?: Yes (7) Dehydration Is this a current diagnosis for this admission?: Yes (8) Generalized weakness Is this a current diagnosis for this admission?: Yes (9) Candidiasis of female genitalia Is this a current diagnosis for this admission?: Yes (10) Hypercalcemia Is this a current diagnosis for this admission?: Yes - Time Time Spent with patient: 15-24 minutes Level of Care: IMCU Medications reviewed and adjusted accordingly: Yes Anticipated discharge: SNF Anticipated DC Timeframe: Other - Plan Summary Plan Summary: Increase the IV fluid discuss with the nephrology and cardiology Discussed with the patient's son on the bedside regarding the patient's current conditions and also daughter patient is currently a DNR/DNI Overall prognosis is poor
[2020-04-20] MEDS: NYSTATIN TOPICAL POWDER 15 GM TP SCH ×2 (09:43→17:21)
[2020-04-20] MEDS: PANTOPRAZOLE SODIUM 40 MG VIAL IV SCH ×2 (09:43→21:04)
[2020-04-20] MEDS: FLUCONAZOLE 100 MG TABLET PO SCH (09:44)
[2020-04-20] MEDS: ATENOLOL 50 MG TABLET PO SCH ×2 (09:44→21:04)
[2020-04-20] MEDS: MUPIROCIN 2% OINTMENT 22 GM TOP SCH ×3 (09:44→17:21)
[2020-04-20] MEDS: COLLAGENASE CLOSTRIDIUM HIST. OINT 30 GM TP SCH (09:44)
[2020-04-20] MEDS: 1/2 NORMAL SALINE 1,000 ML IV PRN ×2 (13:16→21:13)
--- NOTE | 2020-04-20 16:27 | RADIOLOGY REPORT (SQ) ---
EXAM DESCRIPTION: MRI ABDOMEN WITHOUT IMAGES COMPLETED DATE/TIME: 04/19/2020 10:54 pm REASON FOR STUDY: Pancreatic mass COMPARISON: None. TECHNIQUE: Multiplanar multisequence imaging performed without contrast including sagittal, axial an d coronal T2, axial T1. CONTRAST TYPE AND DOSE: None. RENAL FUNCTION: None required. LIMITATIONS: Motion artifact. FINDINGS: LIVER: Normal size. No masses. No dilated ducts. CBD normal. SPLEEN: Normal size. No focal lesions. PANCREAS: Similar appearance of the tail which is difficult to determine if mass lesion versus atroph y in the remainder of the gland. No ductal dilatation. There is fluid surrounding pancreas GALLBLADDER: Choose 3 ADRENAL GLANDS: No significant masses or asymmetry. RIGHT KIDNEY AND URETER: No masses. No hydronephrosis. LEFT KIDNEY AND URETER: No masses. No hydronephrosis. AORTA AND VESSELS: No aneurysm. RETROPERITONEUM: No retroperitoneal adenopathy, hemorrhage or masses. BOWEL: No visualized masses. No inflammation. No significant dilatation. ABDOMINAL WALL AND PERITONEUM: Small amount of ascites. BONES: No acute or significant findings. OTHER: No other significant finding. IMPRESSION: 1. Inflammatory changes consistent with pancreatitis. Difficult to determine if there is a mass in t he pancreatic tail versus atrophy in the remainder of the gland. Follow-up is recommended. 2. Small amount of ascites. COMMENT: Findings were discussed with Dr. Schaeffer. TECHNICAL DOCUMENTATION: JOB ID: [id number] [employer]- All Rights Reserved Reading location - IP/workstation name: [email or web address]
[2020-04-20] MEDS: CEFEPIME 1 GM/D5W RTU 1 GM/50 ML RTUPB IV SCH (17:21)
--- NOTE | 2020-04-20 18:57 | EKG REPORT ---
SEVERITY:- ABNORMAL ECG - SINUS TACHYCARDIA LEFT BUNDLE BRANCH BLOCK : Confirmed by: Channing Schaefer MD 20-Apr-2020 18:57:04
--- NOTE | 2020-04-20 19:38 | Progress Note ---
Provider Note Provider Note: CARDIOLOGY PROGRESS NOTE by Dr. Mar Valente on 04/20/2020. Subjective: The patient is somnolent but when called by name awakens. She denies chest pain. She does not appear to be in any acute distress. There is no arrhythmias seen on the monitor. The patient has been made a DNR. PHYSICAL EXAMINATION: The patient is mildly obese. In no acute distress She is pleasantly confused. Selected Entries 04/20/20 04/20/20 12:18 15:36 Temperature 98.5 F 97.7 F Temperature Axillary Source Pulse Rate 72 73 Respiratory 22 H Rate Blood Pressure 157/89 H Blood Pressure 111 Mean BP Location Right Arm BP Position Supine O2 Sat by Pulse 98 Oximetry Oxygen Delivery Room Air Method HEAD: Is atraumatic normocephalic. EYES: Nipples are equal round regular reactive to light and accommodation. Extraocular movements are normal. There is no conjunctival pallor. There is no scleral icterus. EARS: Tympanic membranes are intact. External auditory canals are clear. NOSE: There is no deviated nasal septum. There is no inflammation nasal mucous membrane. MOUTH: Mucous membranes of the mouth and tongue are dry. There is no bleeding from the gums. THROAT: There is no redness of the oropharynx. There is no exudates. SK IN: There is no skin rashes. There is no skin lesions. There is no petechia or ecchymosis. NECK: Is supple. There is no JVD. Carotids are equal there is no bruits. There is no lymphadenopathy. There is no goiter. There is no lymphadenopathy. There is no accessory muscle respiration use. Trachea central. LUNGS: Clear to auscultation percussion without any rhonchi rales or wheezing. HEART: S1-S2 is heard. There is no S3 gallop. There is no S4 gallop. Systolic murmur left sternal border and the apex there is no rub. ABDOMEN: Soft. There is no hepatosplenomegaly. Bowel sounds are well heard. EXTREMITIES: Femorals are deep. Femorals are diminished. There is no femoral bruits. Leg pulses slightly diminished. There is no pedal edema. There is fungal infection of the patient's groin. There is no cyanosis or clubbing. There is no DVT or cellulitis. There is no calf tenderness. UNIFORM MAKER: The patient is conscious, but drowsy, but when called by name opens her eyes. But is pleasantly confused. There is no focal deficits. PSYCHIATRIC: The patient is drowsy but does not appear to be agitated or anxious. Labs- All tests 24 hr 04/20/20 04/20/20 06:00 06:00 WBC 16.0 H RBC 4.80 Hgb 13.1 Hct 40.8 MCV 85 MCH 27.3 MCHC 32.2 RDW 15.9 H Plt Count 142 L Lymph % (Auto) Not Reportable [place] % (Auto) Not Reportable Eos % (Auto) Not Reportable Baso % (Auto) Not Reportable Absolute Neuts (auto) Not Reportable Absolute Lymphs (auto) Not Reportable Absolute Monos (auto) Not Reportable Absolute Eos (auto) Not Reportable Absolute Basos (auto) Not Reportable Total Counted 100 Seg Neutrophils % Not Reportable Seg Neuts % (Manual) 90 H Lymphocytes % (Manual) 7 L Monocytes % (Manual) 3 Eosinophils % (Manual) 0 Basophils % (Manual) 0 Abs Neuts (Manual) 14.4 H Abs Lymphs (Manual) 1.1 Abs Monocytes (Manual) 0.5 Absolute Eos (Manual) 0.0 Abs Basophils (Manual) 0.0 Toxic Granulation SLIGHT Toxic Vacuolation PRESENT Platelet Comment DECREASED Anisocytosis 1+ Sodium 141.2 Potassium 3.9 Chloride 114 H Carbon Dioxide 19 L Anion Gap 8 BUN 39 H Creatinine 2.12 H Est GFR ( Amer) 27 L Est GFR (MDRD) Non-Af 22 L Glucose 101 Calcium 12.1 H* Lipase 2645.1 H Chest X-Ray 04/17/20 15:13 IMPRESSION: NO ACUTE RADIOGRAPHIC FINDING IN THE CHEST. Head CT 04/17/20 15:14 IMPRESSION: CHRONIC CHANGES OF ATROPHY AND MICROVASCULAR ISCHEMIA. NO ACUTE PROCESS. EVIDENCE OF ACUTE STROKE: NO. Abdomen/Pelvis CT 04/18/20 00:00 IMPRESSION: 1. Asymmetric soft tissue density within the pancreatic tail measuring approximately 2.3 x 1.4 cm with mild adjacent peripancreatic stranding. Findings may be sequelae of pancreatitis although pancreatic neoplasm is not excluded. Recommend correlation with lab values and patient's symptoms. Follow-up dedicated pancreatic protocol CT or MRI should be considered for further characterization. 2. No other evidence of acute intra-abdominal/pelvic process. 3. Status post cholecystectomy. Abdomen MRI 04/19/20 00:00 IMPRESSION: 1. Inflammatory changes consistent with pancreatitis. Difficult to determine if there is a mass in the pancreatic tail versus atrophy in the remainder of the gland. Follow-up is recommended. 2. Small amount of ascites. IMPRESSION/RECOMMENDATION: 1. Borderline elevated troponin secondary to supply demand mismatch. This is most likely secondary to dehydration and acute on chronic renal failure. No evidence of non-ST elevation WI. Hence we will treat the underlying cause and not treat this is an acute coronary syndrome. The troponin is trended down. 2. Acute on chronic kidney disease: Most likely secondary to dehydration. Recommend hydrating the patient. 3. Dehydration: Continue hydration 4. Hypertension: Patient at present with low blood pressure due to dehydration. 5. Chronic left bundle branch block pattern: This is chronic and not an acute change. 6. Abnormal pancreatic imaging by CT scan. 7. Altered mental status: Etiology. Medications reviewed. Medical regimen and management plan discussed with attending provider on the case. Medical decision making is of moderate complexity. Case discussed with Dr. Schaeffer. The cardiac status is stable. The patient is DNR hence will sign off. Continue current medication. Please call me if my services are needed. Thank you
[2020-04-20] MEDS: ATORVASTATIN CALCIUM 10 MG TABLET PO SCH (21:04)
--- NOTE | 2020-04-20 21:11 | PDOC PROGRESS REPORT ---
Subjective Progress Note for:: 04/20/20 Subjective:: Patient appears to be more lethargic today as confirmed by her nurse. Yesterday she was noted to be more combative. Her oral intake of food and fluids remained to be poor. Her blood pressure is running high. Her urine output for the last 24 hours is recorded only to be 325 mL. When I saw her this morning she would open her eyes when prompted but then after a few seconds she would just close it. When I asked her how she is doing she said she is doing fine and did not verbalize any complaints. Reason For Visit: GENERALIZED WEAKNESS,DEHYDRATION Physical Exam Vital Signs: Temp Pulse Resp BP Pulse Ox 97.6 F 72 19 181/98 H 99 04/20/20 10:00 04/20/20 08:41 04/20/20 08:41 04/20/20 08:41 04/20/20 08:41 Intake & Output 04/19/20 04/20/20 04/21/20 06:59 06:59 06:59 Intake Total 2830 1279 Output Total 725 325 Balance 2105 954 Weight 82.1 kg 79.4 kg Exam: General appearance: PRESENT: no acute distress, very lethargic but arousable. Head exam: PRESENT: atraumatic, normocephalic Eye exam: PRESENT: conjunctiva slightly pale, PERRLA. ABSENT: scleral icterus Neck exam: ABSENT: JVD Respiratory exam: PRESENT: Diminished breath sounds. ABSENT: crackles, rales, rhonchi, unlabored, wheezes Cardiovascular exam: PRESENT: Regular rate rhythm -+S1, +S2. ABSENT: diastolic murmur, systolic murmur GI/Abdominal exam: PRESENT: normal bowel sounds, soft. ABSENT: guarding, mass, tenderness Extremities exam: Trace left leg edema with left leg ulcer Neurological exam: PRESENT: Lethargic. Skin exam: PRESENT: dry, warm, Cardiovascular exam: PRESENT: +S1, +S2 GI/Abdominal exam: PRESENT: soft. ABSENT: tenderness Results Laboratory Results: 04/20/20 06:00 04/20/20 06:00 04/19/20 04/20/20 04/20/20 12:57 06:00 06:00 WBC 16.0 H RBC 4.80 Hgb 13.1 Hct 40.8 MCV 85 MCH 27.3 MCHC 32.2 RDW 15.9 H Plt Count 142 L Seg Neutrophils % Not Reportable Sodium 141.2 Potassium 3.9 Chloride 114 H Carbon Dioxide 19 L Anion Gap 8 BUN 39 H Creatinine 2.12 H Est GFR ( Amer) 27 L Glucose 101 Calcium 12.1 H* Total Bilirubin 0.4 AST 19 Alkaline Phosphatase 120 Total Protein 5.4 L Albumin 2.7 L Lipase 5420.0 H 2645.1 H 04/17/20 04/17/20 04/17/20 14:58 14:58 18:03 Creatine Kinase 46 CK-MB (CK-2) 0.58 Troponin I 0.121 0.104 Impressions: Chest X-Ray 04/17/20 15:13 IMPRESSION: NO ACUTE RADIOGRAPHIC FINDING IN THE CHEST. Head CT 04/17/20 15:14 IMPRESSION: CHRONIC CHANGES OF ATROPHY AND MICROVASCULAR ISCHEMIA. NO ACUTE PROCESS. EVIDENCE OF ACUTE STROKE: NO. Abdomen/Pelvis CT 04/18/20 00:00 IMPRESSION: 1. Asymmetric soft tissue density within the pancreatic tail measuring approximately 2.3 x 1.4 cm with mild adjacent peripancreatic strandin g. Findings may be sequelae of pancreatitis although pancreatic neoplasm is not excluded. Recommend correlation with lab values and patient's symptoms. Follow-up dedicated pancreatic protocol CT or MRI should be considered for further characterization. 2. No other evidence of acute intra-abdominal/pelvic process. 3. Status post cholecystectomy. Assessment & Plan - Diagnosis (1) Acute kidney injury superimposed on chronic kidney disease Is this a current diagnosis for this admission?: Yes Plan: Likely secondary to prerenal factors due to dehydration and poor oral intake. Creatinine has been 1.99->1.63->2.12. Urine output proportional to intake. Continue IV fluids as increased today. No need of any renal replacement therapy. Chronic kidney disease stage IV secondary to hypertensive nephrosclerosis with baseline creatinine usually around 1.5-1.7. (2) Dehydration Is this a current diagnosis for this admission?: Yes Plan: Due to poor oral intake. Needs hydration. (3) Generalized weakness Is this a current diagnosis for this admission?: Yes (4) Failure to thrive Is this a current diagnosis for this admission?: Yes Plan: Due to poor oral intake of solids and liquids, I think plan of care moving forward needs to be discussed with family. (5) Hypercalcemia Is this a current diagnosis for this admission?: Yes Plan: Chronic with associated hyperparathyroidism for which the patient opted not to do any further work-up nor intervention. This can also worsen with dehydration. Current calcium level at 12.1. Agree with increasing IV fluid rate. Calcium level continues to go up in the next few days, I would recommend giving calcitonin if the calcium level is 12.5 or greater. (6) Metabolic acidosis Is this a current diagnosis for this admission?: Yes Plan: Possibly due to saline and worsening kidney function. Continue to 0.45 saline at the current rate of 125 mL an hour. (7) Hypertension Is this a current diagnosis for this admission?: Yes Plan: Blood pressure medications has been resumed. Increase hydralazine 100 mg p.o. every 8 hours. (8) Anemia in chronic kidney disease (CKD) Is this a current diagnosis for this admission?: Yes Plan: Mild with possible hemoconcentration initially. (9) Candidiasis of female genitalia Is this a current diagnosis for this admission?: Yes Plan: Management per Dr. Schaeffer. On fluconazole and nystatin. (10) Coronary artery disease Qualifiers: Coronary Disease-Associated Artery/Lesion type: unspecified vessel or lesion type Associated angina: without angina Is this a current diagnosis for this admission?: Yes (11) Dementia Qualifiers: Dementia type: unspecified type Dementia behavioral disturbance: without behavioral disturbance Qualified Code(s): F03.90 - Unspecified dementia without behavioral disturbance Is this a current diagnosis for this admission?: Yes - Time Time with patient: 15-25 minutes
[2020-04-21] MEDS: HYDRALAZINE HCL 50 MG TABLET PO SCH ×3 (05:15→21:17)
[2020-04-21 05:46] LABS: ABSOLUTE EOSINOPHILS # (AUTO) 0.2 10^3/uL (0.0-0.6); ABSOLUTE LYMPHOCYTES (AUTO) 1.1 10^3/uL (0.5-4.7); ABSOLUTE MONOCYTES (AUTO) 0.8 10^3/uL (0.1-1.4); ABSOLUTE NEUT (AUTO) 12.7 10^3/uL (1.7-8.2); BASOPHILS % (AUTO) 0.1 % (0-2); HEMATOCRIT 34.5 % (36.0-47.0); HEMOGLOBIN 11.6 g/dL (12.0-15.5); LYMPHOCYTES % (AUTO) 7.5 % (13-45); MEAN CORPUSCULAR HEMOGLOBIN 28.1 pg (27.0-33.4); MEAN CORPUSCULAR HGB CONC 33.6 g/dL (32.0-36.0); MEAN CORPUSCULAR VOLUME 84 fl (80-97); MONOCYTES % (AUTO) 5.5 % (3-13); PLATELET COUNT 110 10^3/uL (150-450); RED BLOOD COUNT 4.13 10^6/uL (3.72-5.28); RED CELL DISTRIBUTION WIDTH 15.6 % (11.5-14.0); SEGMENTED NEUTROPHILS % (AUTO) 85.9 % (42-78); TOTAL CELLS COUNTED % (AUTO) 100 %; WHITE BLOOD COUNT 14.8 10^3/uL (4.0-10.5)
[2020-04-21 06:06] LABS: ANION GAP 8 (5-19); BLOOD UREA NITROGEN 38 mg/dL (7-20); CALCIUM 11.8 mg/dL (8.4-10.2); CARBON DIOXIDE 19 mmol/L (22-30); CHLORIDE 112 mmol/L (98-107); GLUCOSE 72 mg/dL (75-110); POTASSIUM 3.7 mmol/L (3.6-5.0)
[2020-04-21] MEDS: MUPIROCIN 2% OINTMENT 22 GM TOP SCH ×3 (10:05→17:16)
[2020-04-21] MEDS: NYSTATIN TOPICAL POWDER 15 GM TP SCH ×2 (10:05→17:16)
[2020-04-21] MEDS: ATENOLOL 50 MG TABLET PO SCH ×2 (10:05→21:17)
[2020-04-21] MEDS: COLLAGENASE CLOSTRIDIUM HIST. OINT 30 GM TP SCH (10:05)
[2020-04-21] MEDS: FLUCONAZOLE 100 MG TABLET PO SCH (10:05)
[2020-04-21] MEDS ORDERED: HYDRALAZINE HCL INJ/PF 20 MG/1 ML SDV IV PRN (11:43)
--- NOTE | 2020-04-21 12:55 | PDOC PROGRESS REPORT ---
Subjective Progress Note for:: 04/21/20 Subjective:: Patient is still lethargic Patient opened eyes answer but then go back to sleep Patient's abdominal MRI consistent with a possible pancreatitis Discussed with the daughter she is also in the hospital room #4 13 regarding the patient's current conditions with the poor prognosis discussed with the son also Reason For Visit: GENERALIZED WEAKNESS,DEHYDRATION Physical Exam Vital Signs: Temp Pulse Resp BP Pulse Ox 98.0 F 69 20 187/111 H 99 04/21/20 11:13 04/21/20 11:13 04/21/20 11:13 04/21/20 11:13 04/21/20 11:13 Intake & Output 04/20/20 04/21/20 04/22/20 06:59 06:59 06:59 Intake Total 1279 1844 Output Total 325 450 Balance 954 1394 Weight 79.4 kg 82.5 kg 82.5 kg General appearance: PRESENT: no acute distress Eye exam: PRESENT: PERRLA Mouth exam: PRESENT: neck supple Respiratory exam: PRESENT: decreased breath sounds Cardiovascular exam: PRESENT: +S1, +S2 GI/Abdominal exam: PRESENT: normal bowel sounds, soft Neurological exam: PRESENT: alert, altered, awake Results Laboratory Results: 04/21/20 05:32 04/21/20 05:32 04/21/20 04/21/20 05:32 05:32 WBC 14.8 H RBC 4.13 Hgb 11.6 L Hct 34.5 L MCV 84 MCH 28.1 MCHC 33.6 RDW 15.6 H Plt Count 110 L Seg Neutrophils % 85.9 H Sodium 138.9 Potassium 3.7 Chloride 112 H Carbon Dioxide 19 L Anion Gap 8 BUN 38 H Creatinine 1.95 H Est GFR ( Amer) 30 L Glucose 72 L Calcium 11.8 H Lipase 1694.4 H 04/18/20 22:52 Fabian Catheter Urine Culture - Final NO GROWTH 2 DAYS 04/17/20 04/17/20 04/17/20 14:58 14:58 18:03 Creatine Kinase 46 CK-MB (CK-2) 0.58 Troponin I 0.121 0.104 Impressions: Chest X-Ray 04/17/20 15:13 IMPRESSION: NO ACUTE RADIOGRAPHIC FINDING IN THE CHEST. Head CT 04/17/20 15:14 IMPRESSION: CHRONIC CHANGES OF ATROPHY AND MICROVASCULAR ISCHEMIA. NO ACUTE PROCESS. EVIDENCE OF ACUTE STROKE: NO. Abdomen/Pelvis CT 04/18/20 00:00 IMPRESSION: 1. Asymmetric soft tissue density within the pancreatic tail measuring approximately 2.3 x 1.4 cm with mild adjacent peripancreatic stranding. Findings may be sequelae of pancreatitis although pancreatic neoplasm is not excluded. Recommend correlation with lab values and patient's symptoms. Follow-up dedicated pancreatic protocol CT or MRI should be considered for further characterization. 2. No other evidence of acute intra-abdominal/pelvic process. 3. Status post cholecystectomy. Abdomen MRI 04/19/20 00:00 IMPRESSION: 1. Inflammatory changes consistent with pancreatitis. Difficult to determine if there is a mass in the pancreatic tail versus atrophy in the remainder of the gland. Follow-up is recommended. 2. Small amount of ascites. Assessment & Plan - Diagnosis (1) Acute pancreatitis Qualifiers: Acute pancreatitis complication: unspecified Is this a current diagnosis for this admission?: Yes (2) Acute renal failure superimposed on chronic kidney disease Qualifiers: Chronic kidney disease stage: stage 4 (severe) Is this a current diagnosis for this admission?: Yes (3) Essential (primary) hypertension Is this a current diagnosis for this admission?: Yes (4) Coronary artery disease Qualifiers: Coronary Disease-Associated Artery/Lesion type: unspecified vessel or lesion type Associated angina: without angina Is this a current diagnosis for this admission?: Yes (5) Elevated troponin Is this a current diagnosis for this admission?: Yes (6) Dementia Qualifiers: Dementia type: unspecified type Dementia behavioral disturbance: without behavioral disturbance Qualified Code(s): F03.90 - Unspecified dementia without behavioral disturbance Is this a current diagnosis for this admission?: Yes (7) Dehydration Is this a current diagnosis for this admission?: Yes (8) Generalized weakness Is this a current diagnosis for this admission?: Yes (9) Candidiasis of female genitalia Is this a current diagnosis for this admission?: Yes (10) Hypercalcemia Is this a current diagnosis for this admission?: Yes - Time Time Spent with patient: 15-24 minutes Level of Care: IMCU Medications reviewed and adjusted accordingly: Yes Anticipated discharge: SNF Anticipated DC Timeframe: Other - Plan Summary Plan Summary: Continues IV fluid Continues IV antibiotic Continues the Diflucan discuss with the daughter and other family member regarding the patient's current conditions Patient is currently DNR/DNI
--- NOTE | 2020-04-21 15:24 | PDOC PROGRESS REPORT ---
Subjective Progress Note for:: 04/21/20 Subjective:: Patient appears to be more lethargic and more unresponsive today. She moves a little bit and mumbles few words and just continues to sleep. Her daughter who usually lives with her and was her caregiver who is currently hospitalized here in 4th floor came and visited her in the room. Daughter was relating to me how she and her mom were together in their house for 2 nights prior to being hospitalized. I took the opportunity to talk to her about the patient's current condition. Basically the patient has failure to thrive at this point and I told the daughter there does not seem to be much that we can do. Dr. Schaeffer has talked to her this morning. Patient's daughter opened up the topic regarding hospice but she tells me they have not decided yet. I reiterated that hospice might be an appropriate consideration considering the patient's current condition and poor prognosis. Reason For Visit: GENERALIZED WEAKNESS,DEHYDRATION Physical Exam Vital Signs: Temp Pulse Resp BP Pulse Ox 98.0 F 69 20 187/111 H 99 04/21/20 11:13 04/21/20 11:13 04/21/20 11:13 04/21/20 11:13 04/21/20 11:13 Intake & Output 04/20/20 04/21/20 04/22/20 06:59 06:59 06:59 Intake Total 1279 1844 Output Total 325 450 Balance 954 1394 Weight 79.4 kg 82.5 kg 82.5 kg Exam: General appearance: PRESENT: no acute distress, lethargic and unresponsive Head exam: PRESENT: atraumatic, normocephalic Eye exam: PRESENT: Eyes are kept close Neck exam: ABSENT: JVD Respiratory exam: PRESENT: Diminished breath sounds. ABSENT: crackles, rales, rhonchi, unlabored, wheezes Cardiovascular exam: PRESENT: Regular rate rhythm -+S1, +S2. ABSENT: diastolic murmur, systolic murmur GI/Abdominal exam: PRESENT: normal bowel sounds, soft. ABSENT: guarding, mass, tenderness Extremities exam: ABSENT: No edema, left leg ulcer with dressing Neurological exam: PRESENT: Lethargic. Skin exam: PRESENT: dry, warm, Cardiovascular exam: PRESENT: +S1, +S2 GI/Abdominal exam: PRESENT: soft. ABSENT: tenderness Results Laboratory Results: 04/21/20 05:32 04/21/20 05:32 04/21/20 04/21/20 05:32 05:32 WBC 14.8 H RBC 4.13 Hgb 11.6 L Hct 34.5 L MCV 84 MCH 28.1 MCHC 33.6 RDW 15.6 H Plt Count 110 L Seg Neutrophils % 85.9 H Sodium 138.9 Potassium 3.7 Chloride 112 H Carbon Dioxide 19 L Anion Gap 8 BUN 38 H Creatinine 1.95 H Est GFR ( Amer) 30 L Glucose 72 L Calcium 11.8 H Lipase 1694.4 H 04/18/20 22:52 Fabian Catheter Urine Culture - Final NO GROWTH 2 DAYS 04/17/20 04/17/20 04/17/20 14:58 14:58 18:03 Creatine Kinase 46 CK-MB (CK-2) 0.58 Troponin I 0.121 0.104 Impressions: Chest X-Ray 04/17/20 15:13 IMPRESSION: NO ACUTE RADIOGRAPHIC FINDING IN THE CHEST. Head CT 04/17/20 15:14 IMPRESSION: CHRONIC CHANGES OF ATROPHY AND MICROVASCULAR ISCHEMIA. NO ACUTE PROCESS. EVIDENCE OF ACUTE STROKE: NO. Abdomen/Pelvis CT 04/18/20 00:00 IMPRESSION: 1. Asymmetric soft tissue density within the pancreatic tail measuring approximately 2.3 x 1.4 cm with mild adjacent peripancreatic strandi ng. Findings may be sequelae of pancreatitis although pancreatic neoplasm is not excluded. Recommend correlation with lab values and patient's symptoms. Follow-up dedicated pancreatic protocol CT or MRI should be considered for further characterization. 2. No other evidence of acute intra-abdominal/pelvic process. 3. Status post cholecystectomy. Abdomen MRI 04/19/20 00:00 IMPRESSION: 1. Inflammatory changes consistent with pancreatitis. Difficult to determine if there is a mass in the pancreatic tail versus atrophy in the remainder of the gland. Follow-up is recommended. 2. Small amount of ascites. Assessment & Plan - Diagnosis (1) Acute kidney injury superimposed on chronic kidney disease Is this a current diagnosis for this admission?: Yes Plan: Likely secondary to prerenal factors due to dehydration and poor oral intake. Creatinine has been 1.99->1.63->2.12->1.95. Urine output proportional to intake. Continue IV fluids . No need of any renal replacement therapy. Chronic kidney disease stage IV secondary to hypertensive nephrosclerosis with baseline creatinine usually around 1.5-1.7. (2) Dehydration Is this a current diagnosis for this admission?: Yes Plan: Due to poor oral intake. Needs hydration. (3) Acute pancreatitis Qualifiers: Acute pancreatitis complication: unspecified Is this a current diagnosis for this admission?: Yes Plan: Management per Dr. Schaeffer. Lipase decreasing. (4) Generalized weakness Is this a current diagnosis for this admission?: Yes (5) Failure to thrive Is this a current diagnosis for this admission?: Yes Plan: Due to poor oral intake of solids and liquids, I think plan of care moving forward needs to be discussed with family. Talked to daughter today as stated above and hospice was discussed. (6) Hypercalcemia Is this a current diagnosis for this admission?: Yes Plan: Chronic with associated hyperparathyroidism for which the patient opted not to do any further work-up nor intervention. This can also worsen with dehydration. Current calcium level at 12.1->1.8. Agree with increasing IV fluid rate. If Calcium level continues to go up in the next few days, I would recommend giving calcitonin if the calcium level is 12.5 or greater. (7) Metabolic acidosis Is this a current diagnosis for this admission?: Yes Plan: Possibly due to saline and worsening kidney function. Continue to 0.45 saline at the current rate of 125 mL an hour. Mild and unchanged. (8) Hypertension Is this a current diagnosis for this admission?: Yes Plan: Blood pressure medications has been resumed. Increased hydralazine 100 mg p.o. every 8 hours. (9) Anemia in chronic kidney disease (CKD) Is this a current diagnosis for this admission?: Yes Plan: Mild with possible hemoconcentration initially. (10) Candidiasis of female genitalia Is this a current diagnosis for this admission?: Yes Plan: Management per Dr. Schaeffer. On fluconazole and nystatin. (11) Coronary artery disease Qualifiers: Coronary Disease-Associated Artery/Lesion type: unspecified vessel or lesion type Associated angina: without angina Is this a current diagnosis for this admission?: Yes (12) Dementia Qualifiers: Dementia type: unspecified type Dementia behavioral disturbance: without behavioral disturbance Qualified Code(s): F03.90 - Unspecified dementia without behavioral disturbance Is this a current diagnosis for this admission?: Yes - Time Time with patient: 15-25 minutes
[2020-04-21] MEDS: CEFEPIME 1 GM/D5W RTU 1 GM/50 ML RTUPB IV SCH (17:16)
[2020-04-21] MEDS: ATORVASTATIN CALCIUM 10 MG TABLET PO SCH (21:17)
[2020-04-21] MEDS: 1/2 NORMAL SALINE 1,000 ML IV PRN (21:17)
[2020-04-22] MEDS: HYDRALAZINE HCL 50 MG TABLET PO SCH ×3 (05:32→21:25)
[2020-04-22] MEDS: 1/2 NORMAL SALINE 1,000 ML IV PRN ×2 (05:48→16:42)
--- NOTE | 2020-04-22 06:28 | CDI QUERY ---
CDI Query CDI Review: Dear Provider, Please further specify patient's altered mental status and document in progress notes / discharge summary: ACUTE METABOLIC ENCEPHALOPATHY? ACUTE TOXIC ENCEPHALOPATHY? ACUTE CONFUSIONAL STATE? ADVANCING DEMENTIA, only? OTHER? Clinical findings: lethargic metabolic acidosis NANNETTE possible pancreatitis electrolyte abnormalities declining condition dehydration ThanksMiri, [facility] [phone]
[2020-04-22 07:09] LABS: ABSOLUTE EOSINOPHILS # (AUTO) 0.2 10^3/uL (0.0-0.6); ABSOLUTE LYMPHOCYTES (AUTO) 1.1 10^3/uL (0.5-4.7); ABSOLUTE MONOCYTES (AUTO) 0.7 10^3/uL (0.1-1.4); ABSOLUTE NEUT (AUTO) 10.7 10^3/uL (1.7-8.2); BASOPHILS % (AUTO) 0.1 % (0-2); EOSINOPHILS % (AUTO) 1.7 % (0-6); HEMATOCRIT 34.4 % (36.0-47.0); HEMOGLOBIN 11.4 g/dL (12.0-15.5); LYMPHOCYTES % (AUTO) 8.3 % (13-45); MEAN CORPUSCULAR HEMOGLOBIN 28.1 pg (27.0-33.4); MEAN CORPUSCULAR HGB CONC 33.3 g/dL (32.0-36.0); MEAN CORPUSCULAR VOLUME 84 fl (80-97); MONOCYTES % (AUTO) 5.4 % (3-13); PLATELET COUNT 111 10^3/uL (150-450); RED BLOOD COUNT 4.08 10^6/uL (3.72-5.28); RED CELL DISTRIBUTION WIDTH 15.4 % (11.5-14.0); SEGMENTED NEUTROPHILS % (AUTO) 84.5 % (42-78); TOTAL CELLS COUNTED % (AUTO) 100 %; WHITE BLOOD COUNT 12.7 10^3/uL (4.0-10.5)
[2020-04-22 07:13] LABS: ANION GAP 10 (5-19); BLOOD UREA NITROGEN 35 mg/dL (7-20); CALCIUM 11.7 mg/dL (8.4-10.2); CARBON DIOXIDE 17 mmol/L (22-30); CHLORIDE 111 mmol/L (98-107); POTASSIUM 3.3 mmol/L (3.6-5.0)
[2020-04-22 07:24] LABS: GLUCOSE 63 mg/dL (75-110)
--- NOTE | 2020-04-22 09:23 | PDOC PROGRESS REPORT ---
Subjective Progress Note for:: 04/22/20 Subjective:: Patient is more alert awake but still confused still agitated Patient at this point with external discussed with the family regarding the current conditions with the failure to thrive as per the nephrology and cardiology nothing much can do pretty much at this point patients will be a hospice care or comfort care Consult the conference planner Reason For Visit: GENERALIZED WEAKNESS,DEHYDRATION Physical Exam Vital Signs: Temp Pulse Resp BP Pulse Ox 98.4 F 69 18 115/68 100 04/22/20 04:21 04/22/20 07:00 04/22/20 04:21 04/22/20 04:21 04/22/20 04:21 Intake & Output 04/21/20 04/22/20 04/23/20 06:59 06:59 06:59 Intake Total 2844 1070 Output Total 450 825 Balance 2394 245 Weight 82.5 kg 82.5 kg General appearance: PRESENT: no acute distress Eye exam: PRESENT: PERRLA Mouth exam: PRESENT: neck supple Respiratory exam: PRESENT: decreased breath sounds Cardiovascular exam: PRESENT: +S1, +S2 GI/Abdominal exam: PRESENT: normal bowel sounds, soft Neurological exam: PRESENT: alert, altered, awake Results Laboratory Results: 04/22/20 06:18 04/22/20 06:18 04/22/20 04/22/20 06:18 06:18 WBC 12.7 H RBC 4.08 Hgb 11.4 L Hct 34.4 L MCV 84 MCH 28.1 MCHC 33.3 RDW 15.4 H Plt Count 111 L Seg Neutrophils % 84.5 H Sodium 137.5 Potassium 3.3 L Chloride 111 H Carbon Dioxide 17 L Anion Gap 10 BUN 35 H Creatinine 1.77 H Est GFR ( Amer) 33 L Glucose 63 L Calcium 11.7 H Lipase 1536.6 H 04/18/20 22:52 Fabian Catheter Urine Culture - Final NO GROWTH 2 DAYS 04/17/20 04/17/20 04/17/20 14:58 14:58 18:03 Creatine Kinase 46 CK-MB (CK-2) 0.58 Troponin I 0.121 0.104 Impressions: Chest X-Ray 04/17/20 15:13 IMPRESSION: NO ACUTE RADIOGRAPHIC FINDING IN THE CHEST. Head CT 04/17/20 15:14 IMPRESSION: CHRONIC CHANGES OF ATROPHY AND MICROVASCULAR ISCHEMIA. NO ACUTE PROCESS. EVIDENCE OF ACUTE STROKE: NO. Abdomen/Pelvis CT 04/18/20 00:00 IMPRESSION: 1. Asymmetric soft tissue density within the pancreatic tail measuring approximately 2.3 x 1.4 cm with mild adjacent peripancreatic stranding. Findings may be sequelae of pancreatitis although pancreatic ne oplasm is not excluded. Recommend correlation with lab values and patient's symptoms. Follow-up dedicated pancreatic protocol CT or MRI should be considered for further characterization. 2. No other evidence of acute intra-abdominal/pelvic process. 3. Status post cholecystectomy. Abdomen MRI 04/19/20 00:00 IMPRESSION: 1. Inflammatory changes consistent with pancreatitis. Difficult to determine if there is a mass in the pancreatic tail versus atrophy in the remainder of the gland. Follow-up is recommended. 2. Small amount of ascites. Assessment & Plan - Diagnosis (1) Acute pancreatitis Qualifiers: Acute pancreatitis complication: unspecified Is this a current diagnosis for this admission?: Yes (2) Acute renal failure superimposed on chronic kidney disease Qualifiers: Chronic kidney disease stage: stage 4 (severe) Is this a current diagnosis for this admission?: Yes (3) Essential (primary) hypertension Is this a current diagnosis for this admission?: Yes (4) Coronary artery disease Qualifiers: Coronary Disease-Associated Artery/Lesion type: unspecified vessel or lesion type Associated angina: without angina Is this a current diagnosis for this admission?: Yes (5) Elevated troponin Is this a current diagnosis for this admission?: Yes (6) Dementia Qualifiers: Dementia type: unspecified type Dementia behavioral disturbance: without behavioral disturbance Qualified Code(s): F03.90 - Unspecified dementia without behavioral disturbance Is this a current diagnosis for this admission?: Yes (7) Dehydration Is this a current diagnosis for this admission?: Yes (8) Generalized weakness Is this a current diagnosis for this admission?: Yes (9) Candidiasis of female genitalia Is this a current diagnosis for this admission?: Yes (10) Hypercalcemia Is this a current diagnosis for this admission?: Yes - Time Time Spent with patient: 15-24 minutes Level of Care: IMCU Medications reviewed and adjusted accordingly: Yes Anticipated discharge: SNF Anticipated DC Timeframe: Other - Plan Summary Plan Summary: Continues the current medications
[2020-04-22] MEDS ORDERED: POTASSIUM CHLORIDE 10 MEQ TABLET.ER PO ONE (10:00)
[2020-04-22] MEDS: ATENOLOL 50 MG TABLET PO SCH ×2 (10:00→21:24)
[2020-04-22] MEDS: MUPIROCIN 2% OINTMENT 22 GM TOP SCH ×3 (10:00→17:51)
[2020-04-22] MEDS: NYSTATIN TOPICAL POWDER 15 GM TP SCH ×2 (11:11→17:51)
[2020-04-22] MEDS: FLUCONAZOLE 100 MG TABLET PO SCH (11:12)
[2020-04-22] MEDS: COLLAGENASE CLOSTRIDIUM HIST. OINT 30 GM TP SCH (11:12)
--- NOTE | 2020-04-22 14:24 | PDOC PROGRESS REPORT ---
Subjective Progress Note for:: 04/22/20 Subjective:: The patient appears to be more awake today but continues to be confused. When I entered the room her breakfast was in front of her and it seems like she was trying to reach overhead but when asked she said "I do not want it". She does mumbles and say things but not really answering all questions appropriately. Reason For Visit: GENERALIZED WEAKNESS,DEHYDRATION Physical Exam Vital Signs: Temp Pulse Resp BP Pulse Ox 97.3 F 69 18 171/90 H 100 04/22/20 08:26 04/22/20 08:26 04/22/20 08:26 04/22/20 08:26 04/22/20 08:26 Intake & Output 04/21/20 04/22/20 04/23/20 06:59 06:59 06:59 Intake Total 2844 1070 Output Total 450 825 Balance 2394 245 Weight 82.5 kg 82.5 kg Exam: General appearance: PRESENT: no acute distress, more awake and at least saying some few phrases. Head exam: PRESENT: atraumatic, normocephalic Eye exam: PRESENT: conjunctiva pale, PERRLA. ABSENT: scleral icterus Neck exam: ABSENT: JVD Respiratory exam: PRESENT: Diminished breath sounds. ABSENT: crackles, rales, rhonchi, unlabored, wheezes Cardiovascular exam: PRESENT: Regular rate rhythm -+S1, +S2. ABSENT: diastolic murmur, systolic murmur GI/Abdominal exam: PRESENT: normal bowel sounds, soft. ABSENT: guarding, mass, tenderness Extremities exam: ABSENT: No edema Neurological exam: PRESENT: alert, awake, oriented to person, but not to place and time. Skin exam: PRESENT: dry, warm, Cardiovascular exam: PRESENT: +S1, +S2 GI/Abdominal exam: PRESENT: soft. ABSENT: tenderness Results Laboratory Results: 04/22/20 06:18 04/22/20 06:18 04/22/20 04/22/20 06:18 06:18 WBC 12.7 H RBC 4.08 Hgb 11.4 L Hct 34.4 L MCV 84 MCH 28.1 MCHC 33.3 RDW 15.4 H Plt Count 111 L Seg Neutrophils % 84.5 H Sodium 137.5 Potassium 3.3 L Chloride 111 H Carbon Dioxide 17 L Anion Gap 10 BUN 35 H Creatinine 1.77 H Est GFR ( Amer) 33 L Glucose 63 L Calcium 11.7 H Lipase 1536.6 H 04/18/20 22:52 Fabian Catheter Urine Culture - Final NO GROWTH 2 DAYS 04/17/20 04/17/20 04/17/20 14:58 14:58 18:03 Creatine Kinase 46 CK-MB (CK-2) 0.58 Troponin I 0.121 0.104 Impressions: Chest X-Ray 04/17/20 15:13 IMPRESSION: NO ACUTE RADIOGRAPHIC FINDING IN THE CHEST. Head CT 04/17/20 15:14 IMPRESSION: CHRONIC CHANGES OF ATROPHY AND MICROVASCULAR ISCHEMIA. NO ACUTE PROCESS. EVIDENCE OF ACUTE STROKE: NO. Abdomen/Pelvis CT 04/18/20 00:00 IMPRESSION: 1. Asymmetric soft tissue density within the pancreatic tail measuring approximately 2.3 x 1.4 cm with mild adjacent peripancreatic stranding. Findings may be sequelae of pancreatitis although pancreatic neoplasm is not excluded. Recommend correlation with lab values and patient's symptoms. Follow-up dedicated pancreatic protocol CT or MRI should be considered for further characterization. 2. No other evidence of acute intra-abdominal/pelvic process. 3. Status post cholecystectomy. Abdomen MRI 04/19/20 00:00 IMPRESSION: 1. Inflammatory changes consistent with pancreatitis. Difficult to determine if there is a mass in the pancreatic tail versus atrophy in the remainder of the gland. Follow-up is recommended. 2. Small amount of ascites. Assessment & Plan - Diagnosis (1) Acute kidney injury superimposed on chronic kidney disease Is this a current diagnosis for this admission?: Yes Plan: Likely secondary to prerenal factors due to dehydration and poor oral intake. Creatinine has been 1.99->1.63->2.12->1.95->1.77. Urine output proportional to intake which seems to be improving. Continue IV fluids . No need of any renal replacement therapy. Chronic kidney disease stage IV secondary to hypertensive nephrosclerosis with baseline creatinine usually around 1.5-1.7. Kidney function is now at baseline. (2) Dehydration Is this a current diagnosis for this admission?: Yes Plan: Due to poor oral intake. Hydration status improved. (3) Acute pancreatitis Qualifiers: Acute pancreatitis complication: unspecified Is this a current diagnosis for this admission?: Yes Plan: Management per Dr. Schaeffer. Lipase decreasing. (4) Generalized weakness Is this a current diagnosis for this admission?: Yes (5) Failure to thrive Is this a current diagnosis for this admission?: Yes Plan: Due to poor oral intake of solids and liquids, I think plan of care moving forward needs to be discussed with family. I talked to daughter yesterday and hospice was discussed but no decision was made. (6) Hypercalcemia Is this a current diagnosis for this admission?: Yes Plan: Chronic with associated hyperparathyroidism for which the patient opted not to do any further work-up nor intervention. This can also worsen with dehydration. Current calcium level at 12.1->11.8->11.7. Continue current management. (7) Metabolic acidosis Is this a current diagnosis for this admission?: Yes Plan: Possibly due to saline and worsening kidney function. Continue to 0.45 saline at the current rate of 125 mL an hour. Mild and unchanged. Start sodium bicarbonate. (8) Hypertension Is this a current diagnosis for this admission?: Yes Plan: Blood pressure medications has been resumed. Increased hydralazine 100 mg p.o. every 8 hours. Unfortunately she is not consistent with taking her oral medications. (9) Anemia in chronic kidney disease (CKD) Is this a current diagnosis for this admission?: Yes Plan: Mild with possible hemoconcentration initially. (10) Candidiasis of female genitalia Is this a current diagnosis for this admission?: Yes Plan: Management per Dr. Schaeffer. On fluconazole and nystatin. (11) Coronary artery disease Qualifiers: Coronary Disease-Associated Artery/Lesion type: unspecified vessel or lesion type Associated angina: without angina Is this a current diagnosis for this admission?: Yes (12) Dementia Qualifiers: Dementia type: unspecified type Dementia behavioral disturbance: without behavioral disturbance Qualified Code(s): F03.90 - Unspecified dementia without behavioral disturbance Is this a current diagnosis for this admission?: Yes - Notes Notes: I will sign off at this time. Please call us back if we can be of further help.
[2020-04-22] MEDS: SODIUM BICARBONATE 650 MG TABLET PO SCH ×2 (16:44→21:25)
[2020-04-22] MEDS: CEFEPIME 1 GM/D5W RTU 1 GM/50 ML RTUPB IV SCH (17:50)
[2020-04-22] MEDS: ATORVASTATIN CALCIUM 10 MG TABLET PO SCH (21:25)
[2020-04-23] MEDS: 1/2 NORMAL SALINE 1,000 ML IV PRN (00:45)
[2020-04-23] MEDS: HYDRALAZINE HCL 50 MG TABLET PO SCH ×3 (05:08→21:28)
[2020-04-23] MEDS: SODIUM BICARBONATE 650 MG TABLET PO SCH ×3 (05:09→21:22)
[2020-04-23 05:35] LABS: ABSOLUTE EOSINOPHILS # (AUTO) 0.3 10^3/uL (0.0-0.6); ABSOLUTE MONOCYTES (AUTO) 0.6 10^3/uL (0.1-1.4); ABSOLUTE NEUT (AUTO) 9.1 10^3/uL (1.7-8.2); BASOPHILS % (AUTO) 0.1 % (0-2); EOSINOPHILS % (AUTO) 2.3 % (0-6); HEMATOCRIT 29.6 % (36.0-47.0); HEMOGLOBIN 9.8 g/dL (12.0-15.5); LYMPHOCYTES % (AUTO) 9.2 % (13-45); MEAN CORPUSCULAR HEMOGLOBIN 28.2 pg (27.0-33.4); MEAN CORPUSCULAR HGB CONC 33.1 g/dL (32.0-36.0); MEAN CORPUSCULAR VOLUME 85 fl (80-97); MONOCYTES % (AUTO) 5.4 % (3-13); RED BLOOD COUNT 3.48 10^6/uL (3.72-5.28); RED CELL DISTRIBUTION WIDTH 15.6 % (11.5-14.0); TOTAL CELLS COUNTED % (AUTO) 100 %
[2020-04-23 05:46] LABS: ANION GAP 9 (5-19); BLOOD UREA NITROGEN 27 mg/dL (7-20); CALCIUM 10.5 mg/dL (8.4-10.2); CARBON DIOXIDE 17 mmol/L (22-30); CHLORIDE 108 mmol/L (98-107); POTASSIUM 3.9 mmol/L (3.6-5.0)
[2020-04-23 05:58] LABS: GLUCOSE 57 mg/dL (75-110)
[2020-04-23 06:13] LABS: PLATELET COUNT 95 10^3/uL (150-450)
[2020-04-23] MEDS: DEXTROSE 5%-1/2 NORMAL SALINE 1,000 ML IV PRN ×2 (07:14→17:55)
--- NOTE | 2020-04-23 10:07 | PDOC PROGRESS REPORT ---
Subjective Progress Note for:: 04/23/20 Subjective:: Patient is currently doing same Still very poor p.o. intake refused to eat eat At this point patient's worsening the medical condition including the dementia encephalopathy with advanced age patient is currently a DNR/DNI I do think so at this point and I think can be offer much better much patient should be more hospice but discussed with the patient's family member Discussed with the son and the daughter regarding the patient's current conditions with the poor prognosis Reason For Visit: GENERALIZED WEAKNESS,DEHYDRATION Physical Exam Vital Signs: Temp Pulse Resp BP Pulse Ox 97.7 F 77 18 133/104 H 95 04/23/20 08:16 04/23/20 08:16 04/23/20 08:16 04/23/20 08:16 04/23/20 08:16 Intake & Output 04/22/20 04/23/20 04/24/20 06:59 06:59 06:59 Intake Total 1070 2175 Output Total 825 825 Balance 245 1350 Weight 82.5 kg 82.4 kg General appearance: PRESENT: no acute distress Eye exam: PRESENT: PERRLA Mouth exam: PRESENT: neck supple Respiratory exam: PRESENT: clear to auscultation ying Cardiovascular exam: PRESENT: +S1, +S2 GI/Abdominal exam: PRESENT: normal bowel sounds, soft Neurological exam: PRESENT: alert, altered, awake Results Laboratory Results: 04/23/20 04:45 04/23/20 04:45 04/23/20 04/23/20 04:45 04:45 WBC 11.0 H RBC 3.48 L Hgb 9.8 L Hct 29.6 L MCV 85 MCH 28.2 MCHC 33.1 RDW 15.6 H Plt Count 95 L Seg Neutrophils % 83.0 H Sodium 133.7 L Potassium 3.9 Chloride 108 H Carbon Dioxide 17 L Anion Gap 9 BUN 27 H Creatinine 1.54 H Est GFR ( Amer) 39 L Glucose 57 L Calcium 10.5 H 04/18/20 09:21 Blood Blood Culture - Final NO GROWTH IN 5 DAYS 04/18/20 09:25 Blood Blood Culture - Final NO GROWTH IN 5 DAYS 04/17/20 04/17/20 04/17/20 14:58 14:58 18:03 Creatine Kinase 46 CK-MB (CK-2) 0.58 Troponin I 0.121 0.104 Impressions: Chest X-Ray 04/17/20 15:13 IMPRESSION: NO ACUTE RADIOGRAPHIC FINDING IN THE CHEST. Head CT 04/17/20 15:14 IMPRESSION: CHRONIC CHANGES OF ATROPHY AND MICROVASCULAR ISCHEMIA. NO ACUTE PROCESS. EVIDENCE OF ACUTE STROKE: NO. Abdomen/Pelvis CT 04/18/20 00:00 IMPRESSION: 1. Asymmetric soft tissue density within the pancreatic tail measuring approximately 2.3 x 1.4 cm with mild adjacent peripancreatic stranding. Findings may be sequelae of pancreatitis although pancreatic neoplasm is not excluded. Recommend correlation with lab values and patient's symptoms. Follow-up dedicated pancreatic protocol CT or MRI should be considered for further characterization. 2. No other evidence of acute intra-abdominal/pelvic process. 3. Status post cholecystectomy. Abdomen MRI 04/19/20 00:00 IMPRESSION: 1. Inflammatory changes consistent with pancreatitis. Difficult to determine if there is a mass in the pancreatic tail versus atrophy in the remainder of the gland. Follow-up is recommended. 2. Small amount of ascites. Assessment & Plan - Diagnosis (1) Acute pancreatitis Qualifiers: Acute pancreatitis complication: unspecified Is this a current diagnosis for this admission?: Yes (2) Acute renal failure superimposed on chronic kidney disease Qualifiers: Chronic kidney disease stage: stage 4 (severe) Is this a current diagnosis for this admission?: Yes (3) Essential (primary) hypertension Is this a current diagnosis for this admission?: Yes (4) Coronary artery disease Qualifiers: Coronary Disease-Associated Artery/Lesion type: unspecified vessel or lesion type Associated angina: without angina Is this a current diagnosis for this admission?: Yes (5) Elevated troponin Is this a current diagnosis for this admission?: Yes (6) Dementia Qualifiers: Dementia type: unspecified type Dementia behavioral disturbance: without behavioral disturbance Qualified Code(s): F03.90 - Unspecified dementia without behavioral disturbance Is this a current diagnosis for this admission?: Yes (7) Dehydration Is this a current diagnosis for this admission?: Yes (8) Generalized weakness Is this a current diagnosis for this admission?: Yes (9) Candidiasis of female genitalia Is this a current diagnosis for this admission?: Yes (10) Hypercalcemia Is this a current diagnosis for this admission?: Yes - Time Time Spent with patient: 15-24 minutes Level of Care: IMCU Medications reviewed and adjusted accordingly: Yes Anticipated discharge: Other Anticipated DC Timeframe: Other - Plan Summary Plan Summary: We will change the IV fluid to D5 with half-normal saline due to the failure to thrive's hypoglycemia continues to current medications consult facilities planner
[2020-04-23] MEDS: HYDRALAZINE HCL INJ/PF 20 MG/1 ML SDV IV SCH ×2 (11:10→17:46)
[2020-04-23] MEDS: COLLAGENASE CLOSTRIDIUM HIST. OINT 30 GM TP SCH (11:10)
[2020-04-23] MEDS: ATENOLOL 50 MG TABLET PO SCH ×2 (11:11→21:22)
[2020-04-23] MEDS: NYSTATIN TOPICAL POWDER 15 GM TP SCH ×2 (11:12→17:46)
[2020-04-23] MEDS: FLUCONAZOLE 100 MG TABLET PO SCH (11:13)
[2020-04-23] MEDS: MUPIROCIN 2% OINTMENT 22 GM TOP SCH ×3 (11:14→18:00)
[2020-04-23] MEDS: CEFEPIME 1 GM/D5W RTU 1 GM/50 ML RTUPB IV SCH (17:45)
[2020-04-23] MEDS: ATORVASTATIN CALCIUM 10 MG TABLET PO SCH (21:22)
[2020-04-24] MEDS: HYDRALAZINE HCL INJ/PF 20 MG/1 ML SDV IV SCH ×4 (00:17→17:18)
[2020-04-24] MEDS: HYDRALAZINE HCL 50 MG TABLET PO SCH ×3 (05:56→21:06)
[2020-04-24] MEDS: SODIUM BICARBONATE 650 MG TABLET PO SCH ×3 (05:57→21:06)
[2020-04-24 09:35] LABS: ABSOLUTE EOSINOPHILS # (AUTO) 0.2 10^3/uL (0.0-0.6); ABSOLUTE LYMPHOCYTES (AUTO) 0.8 10^3/uL (0.5-4.7); ABSOLUTE MONOCYTES (AUTO) 0.5 10^3/uL (0.1-1.4); ABSOLUTE NEUT (AUTO) 7.6 10^3/uL (1.7-8.2); BASOPHILS % (AUTO) 0.2 % (0-2); EOSINOPHILS % (AUTO) 2.4 % (0-6); HEMATOCRIT 30.4 % (36.0-47.0); HEMOGLOBIN 10.3 g/dL (12.0-15.5); LYMPHOCYTES % (AUTO) 8.5 % (13-45); MEAN CORPUSCULAR HEMOGLOBIN 28.4 pg (27.0-33.4); MEAN CORPUSCULAR VOLUME 84 fl (80-97); MONOCYTES % (AUTO) 5.7 % (3-13); PLATELET COUNT 110 10^3/uL (150-450); RED BLOOD COUNT 3.64 10^6/uL (3.72-5.28); RED CELL DISTRIBUTION WIDTH 15.8 % (11.5-14.0); SEGMENTED NEUTROPHILS % (AUTO) 83.2 % (42-78); TOTAL CELLS COUNTED % (AUTO) 100 %; WHITE BLOOD COUNT 9.2 10^3/uL (4.0-10.5)
[2020-04-24 09:54] LABS: ANION GAP 7 (5-19); BLOOD UREA NITROGEN 21 mg/dL (7-20); CALCIUM 11.6 mg/dL (8.4-10.2); CARBON DIOXIDE 18 mmol/L (22-30); CHLORIDE 109 mmol/L (98-107); GLUCOSE 116 mg/dL (75-110); POTASSIUM 3.6 mmol/L (3.6-5.0)
--- NOTE | 2020-04-24 09:54 | PDOC PROGRESS REPORT ---
Subjective Progress Note for:: 04/24/20 Subjective:: Patient is currently doing same Still very poor p.o. intake Still very confused As per extensive discussions with other coordinate senior management consultant patients pretty much currently on hospice is very appropriate Discussed with the son Sammy today's regarding the patient's current conditions discussed about the hospice and comfort care Patient's daughter currently living at [facility] and will probably send the patient's to over there most hours to hospice if they take it is a hospice also discussed about the inpatient hospice Patients can undergo outpatient hospice We will consult case planner and hopefully discharged with the more comfort care and hospice care Reason For Visit: GENERALIZED WEAKNESS,DEHYDRATION Physical Exam Vital Signs: Temp Pulse Resp BP Pulse Ox 97.6 F 76 20 154/92 H 99 04/24/20 08:38 04/24/20 07:00 04/24/20 03:54 04/24/20 03:54 04/24/20 03:54 Intake & Output 04/23/20 04/24/20 04/25/20 06:59 06:59 06:59 Intake Total 2175 1050 Output Total 825 1050 Balance 1350 0 Weight 82.4 kg 85.6 kg General appearance: PRESENT: no acute distress Head exam: PRESENT: atraumatic, normocephalic Eye exam: PRESENT: conjunctiva pink, EOMI, PERRLA. ABSENT: scleral icterus Ear exam: PRESENT: normal external ear exam Mouth exam: PRESENT: moist, tongue midline Neck exam: PRESENT: full ROM. ABSENT: carotid bruit, JVD, lymphadenopathy, thyromegaly Respiratory exam: PRESENT: clear to auscultation ying Cardiovascular exam: PRESENT: RRR. ABSENT: diastolic murmur, rubs, systolic murmur Vascular exam: PRESENT: normal capillary refill GI/Abdominal exam: PRESENT: normal bowel sounds, soft. ABSENT: distended, guarding, mass, organolmegaly, rebound, tenderness Rectal exam: PRESENT: deferred Neurological exam: PRESENT: alert, altered. ABSENT: motor sensory deficit Psychiatric exam: PRESENT: appropriate affect, normal mood. ABSENT: homicidal ideation, suicidal ideation Skin exam: PRESENT: dry, intact, warm. ABSENT: cyanosis, rash Results Laboratory Results: 04/24/20 08:52 04/24/20 04/24/20 07:48 08:52 WBC Cancelled 9.2 RBC Cancelled 3.64 L Hgb Cancelled 10.3 L Hct Cancelled 30.4 L MCV Cancelled 84 MCH Cancelled 28.4 MCHC Cancelled 34.0 RDW Cancelled 15.8 H Plt Count Cancelled 110 L Seg Neutrophils % Cancelled 83.2 H 04/18/20 09:21 Blood Blood Culture - Final NO GROWTH IN 5 DAYS 04/18/20 09:25 Blood Blood Culture - Final NO GROWTH IN 5 DAYS 04/17/20 04/17/20 04/17/20 14:58 14:58 18:03 Creatine Kinase 46 CK-MB (CK-2) 0.58 Troponin I 0.121 0.104 Impressions: Chest X-Ray 04/17/20 15:13 IMPRESSION: NO ACUTE RADIOGRAPHIC FINDING IN THE CHEST. Head CT 04/17/20 15:14 IMPRESSION: CHRONIC CHANGES OF ATROPHY AND MICROVASCULAR ISCHEMIA. NO ACUTE PROCESS. EVIDENCE OF ACUTE STROKE: NO. Abdomen/Pelvis CT 04/18/20 00:00 IMPRESSION: 1. Asymmetric soft tissue density within the pancreatic tail measuring approximately 2.3 x 1.4 cm with mild adjacent peripancreatic stranding. Findings may be sequelae of pancreatitis although pancreatic neoplasm is not excluded. Recommend correlation with lab values and patient's symptoms. Follow-up dedicated pancreatic protocol CT or MRI should be considered for further characterization. 2. No other evidence of acute intra-abdominal/pelvic process. 3. Status post cholecystectomy. Abdomen MRI 04/19/20 00:00 IMPRESSION: 1. Inflammatory changes consistent with pancreatitis. Difficult to determine if there is a mass in the pancreatic tail versus atrophy in the remainder of the gland. Follow-up is recommended. 2. Small amount of ascites. Assessment & Plan - Diagnosis (1) Acute pancreatitis Qualifiers: Acute pancreatitis complication: unspecified Is this a current diagnosis for this admission?: Yes (2) Acute renal failure superimposed on chronic kidney disease Qualifiers: Chronic kidney disease stage: stage 4 (severe) Is this a current diagnosis for this admission?: Yes (3) Essential (primary) hypertension Is this a current diagnosis for this admission?: Yes (4) Coronary artery disease Qualifiers: Coronary Disease-Associated Artery/Lesion type: unspecified vessel or lesion type Associated angina: without angina Is this a current diagnosis for this admission?: Yes (5) Elevated troponin Is this a current diagnosis for this admission?: Yes (6) Dementia Qualifiers: Dementia type: unspecified type Dementia behavioral disturbance: without behavioral disturbance Qualified Code(s): F03.90 - Unspecified dementia without behavioral disturbance Is this a current diagnosis for this admission?: Yes (7) Dehydration Is this a current diagnosis for this admission?: Yes (8) Generalized weakness Is this a current diagnosis for this admission?: Yes (9) Candidiasis of female genitalia Is this a current diagnosis for this admission?: Yes (10) Hypercalcemia Is this a current diagnosis for this admission?: Yes - Time Time Spent with patient: 15-24 minutes Level of Care: IMCU Medications reviewed and adjusted accordingly: Yes Anticipated discharge: Hospice, Other Anticipated DC Timeframe: within 24 hours - Plan Summary Plan Summary: We will consult the case planner for the hospice arrangement at the nursing rehab facility versus inpatient hospice
[2020-04-24] MEDS: DEXTROSE 5%-1/2 NORMAL SALINE 1,000 ML IV PRN ×2 (09:56→22:28)
[2020-04-24] MEDS: FLUCONAZOLE 100 MG TABLET PO SCH (09:57)
[2020-04-24] MEDS: MUPIROCIN 2% OINTMENT 22 GM TOP SCH ×3 (09:57→17:18)
[2020-04-24] MEDS: NYSTATIN TOPICAL POWDER 15 GM TP SCH ×2 (09:58→17:18)
[2020-04-24] MEDS: COLLAGENASE CLOSTRIDIUM HIST. OINT 30 GM TP SCH (09:58)
[2020-04-24] MEDS: ATENOLOL 50 MG TABLET PO SCH ×2 (09:58→21:06)
[2020-04-24] MEDS: CEFEPIME 1 GM/D5W RTU 1 GM/50 ML RTUPB IV SCH (17:18)
[2020-04-24] MEDS: ATORVASTATIN CALCIUM 10 MG TABLET PO SCH (21:06)
[2020-04-25] MEDS: HYDRALAZINE HCL INJ/PF 20 MG/1 ML SDV IV SCH ×4 (00:11→17:51)
[2020-04-25] MEDS: HYDRALAZINE HCL 50 MG TABLET PO SCH ×3 (06:09→21:53)
[2020-04-25] MEDS: SODIUM BICARBONATE 650 MG TABLET PO SCH ×3 (06:09→21:54)
[2020-04-25] MEDS: MUPIROCIN 2% OINTMENT 22 GM TOP SCH ×3 (11:02→17:47)
[2020-04-25] MEDS: ATENOLOL 50 MG TABLET PO SCH ×2 (11:03→21:54)
[2020-04-25] MEDS: COLLAGENASE CLOSTRIDIUM HIST. OINT 30 GM TP SCH (11:03)
[2020-04-25] MEDS: FLUCONAZOLE 100 MG TABLET PO SCH (11:03)
--- NOTE | 2020-04-25 12:41 | PDOC PROGRESS REPORT ---
Subjective Date:: 04/25/20 Subjective:: Patient is currently doing same Still very poor p.o. intake Still very confused As per extensive discussions with other coordinate computing consultant patients pretty much currently on hospice is very appropriate Discussed with the son Sammy today's regarding the patient's current conditions discussed about the hospice and comfort care Patient's daughter currently living at [facility] and will probably send the patient's to over there most hours to hospice if they take it is a hospice also discussed about the inpatient hospice Patients can undergo outpatient hospice We will consult traffic and transport planner and hopefully discharged with the more comfort care and hospice care Reason For Visit: GENERALIZED WEAKNESS,DEHYDRATION Physical Exam Vital Signs: Temp Pulse Resp BP Pulse Ox 97.5 F 73 17 150/83 H 99 04/25/20 11:08 04/25/20 11:08 04/25/20 11:08 04/25/20 11:08 04/25/20 11:08 Intake & Output 04/24/20 04/25/20 04/26/20 06:59 06:59 06:59 Intake Total 1050 1990 Output Total 1050 625 Balance 0 1365 Weight 85.6 kg 86.1 kg General appearance: PRESENT: no acute distress Eye exam: PRESENT: PERRLA Mouth exam: PRESENT: neck supple Respiratory exam: PRESENT: clear to auscultation ying Cardiovascular exam: PRESENT: +S1, +S2 GI/Abdominal exam: PRESENT: normal bowel sounds, soft Neurological exam: PRESENT: altered Skin exam: PRESENT: dry Results Laboratory Results: 04/24/20 08:52 04/24/20 08:52 04/17/20 04/17/20 04/17/20 14:58 14:58 18:03 Creatine Kinase 46 CK-MB (CK-2) 0.58 Troponin I 0.121 0.104 Impressions: Chest X-Ray 04/17/20 15:13 IMPRESSION: NO ACUTE RADIOGRAPHIC FINDING IN THE CHEST. Head CT 04/17/20 15:14 IMPRESSION: CHRONIC CHANGES OF ATROPHY AND MICROVASCULAR ISCHEMIA. NO ACUTE PROCESS. EVIDENCE OF ACUTE STROKE: NO. Abdomen/Pelvis CT 04/18/20 00:00 IMPRESSION: 1. Asymmetric soft tissue density within the pancreatic tail measuring approximately 2.3 x 1.4 cm with mild adjacent peripancreatic stranding. Findings may be sequelae of pancreatitis although pancreatic neoplasm is not excluded. Recommend correlation with lab values and patient's symptoms. Follow-up dedicated pancreatic protocol CT or MRI should be considered for further characterization. 2. No other evidence of acute intra-abdominal/pelvic process. 3. Status post cholecystectomy. Abdomen MRI 04/19/20 00:00 IMPRESSION: 1. Inflammatory changes consistent with pancreatitis. Difficult to determine if there is a mass in the pancreatic tail versus atrophy in the remainder of the gland. Follow-up is recommended. 2. Small amount of ascites. Assessment & Plan - Diagnosis (1) Acute pancreatitis Qualifiers: Acute pancreatitis complication: unspecified Is this a current diagnosis for this admission?: Yes (2) Acute renal failure superimposed on chronic kidney disease Qualifiers: Chronic kidney disease stage: stage 4 (severe) Is this a current diagnosis for this admission?: Yes (3) Essential (primary) hypertension Is this a current diagnosis for this admission?: Yes (4) Coronary artery disease Qualifiers: Coronary Disease-Associated Artery/Lesion type: unspecified vessel or lesion type Associated angina: without angina Is this a current diagnosis for this admission?: Yes (5) Elevated troponin Is this a current diagnosis for this admission?: Yes (6) Dementia Qualifiers: Dementia type: unspecified type Dementia behavioral disturbance: without behavioral disturbance Qualified Code(s): F03.90 - Unspecified dementia without behavioral disturbance Is this a current diagnosis for this admission?: Yes (7) Dehydration Is this a current diagnosis for this admission?: Yes (8) Generalized weakness Is this a current diagnosis for this admission?: Yes (9) Candidiasis of female genitalia Is this a current diagnosis for this admission?: Yes (10) Hypercalcemia Is this a current diagnosis for this admission?: Yes - Time Time Spent with patient: 15-24 minutes Level of Care: IMCU Anticipated discharge: Hospice Anticipated DC Timeframe: when bed available - Plan Summary Plan Summary: With the patient's advanced age dementia chronic kidney disease congestive heart failure and multiple other comorbidity patients at this point DNR/DNI and a life expectancy is less than 6-month with the failure to thrive discussed with the patient family I think patient appropriate for at this point for the hospice care
[2020-04-25] MEDS: DEXTROSE 5%-1/2 NORMAL SALINE 1,000 ML IV PRN (13:10)
[2020-04-25] MEDS: CEFEPIME 1 GM/D5W RTU 1 GM/50 ML RTUPB IV SCH (17:52)
[2020-04-25] MEDS: ATORVASTATIN CALCIUM 10 MG TABLET PO SCH (21:54)
[2020-04-26] MEDS: HYDRALAZINE HCL INJ/PF 20 MG/1 ML SDV IV SCH ×3 (00:15→12:13)
[2020-04-26] MEDS: HYDRALAZINE HCL 50 MG TABLET PO SCH ×2 (06:38→13:04)
[2020-04-26] MEDS: SODIUM BICARBONATE 650 MG TABLET PO SCH ×2 (06:38→13:04)
--- NOTE | 2020-04-26 08:32 | PDOC TRANSFER SUMMARY ---
Impression - Admit/DC Date/PCP Admission Date/Primary Care Provider: 04/17/20 19:47 Discharge Date: 04/26/20 - Discharge Diagnosis (1) Acute pancreatitis Is this a current diagnosis for this admission?: Yes (2) Acute renal failure superimposed on chronic kidney disease Is this a current diagnosis for this admission?: Yes (3) Essential (primary) hypertension Is this a current diagnosis for this admission?: Yes (4) Coronary artery disease Is this a current diagnosis for this admission?: Yes (5) Elevated troponin Is this a current diagnosis for this admission?: Yes (6) Dementia Is this a current diagnosis for this admission?: Yes (7) Dehydration Is this a current diagnosis for this admission?: Yes (8) Generalized weakness Is this a current diagnosis for this admission?: Yes (9) Candidiasis of female genitalia Is this a current diagnosis for this admission?: Yes (10) Hypercalcemia Is this a current diagnosis for this admission?: Yes - Additional Information Resuscitation Status: Do Not Resuscitate Discharge Diet: As Tolerated Referrals: PANDA HA MD [ACTIVE STAFF] - Follow up as needed Home Medications: Hydralazine HCl [Apresoline 50 mg Tablet] 100 mg PO Q8 #90 tablet 09/26/13 Atenolol [Tenormin 50 mg Tablet] 50 mg PO Q12 04/18/20 Furosemide [Lasix 20 mg Tablet] 10 mg PO DAILY 04/18/20 Losartan Potassium 50 mg PO Q12 04/18/20 Mupirocin [Bactroban 2% Ointment 22 gm] 1 applic TOP TID 04/18/20 Rosuvastatin Calcium 5 mg PO QHS 04/18/20 History of Present Illiness History of Present Illness: VIOLETA TIERNEY is a 84 year old female This 84-year-old female's with a significant history of the chronic kidney disease stage IV hypertension's hyperlipidemia underlying dementia coronary artery disease and multiple other comorbidityBrought to the emergency department by the her son to the EMS because of getting more weak According to the son patient's was taking care of by her daughters when she got a stroke couple of months back and then patient last week went to her old house and the patient was not eating or drinking when the son went to the house patient was very weak patient's son try to give her some blood pressure medications and then makes the patient's blood pressure slowed and very weak and called the EMS In the emergency department patient was find the dehydrated acute renal failure and admitting in the hospital I saw the patient in the 4 patient was alert awake but agitated patient have a significant groin candidiasis order the CT scan of the abdomen and pelvis with so the questionable pancreatic issue with possible pancreatitis with a lipase was elevated At this point discussed with the patient's son Sammy regarding the patient's current conditions about the CODE STATUS and he will discussed with her family member but pretty much toward about the no code Hospital Course Hospital Course: This 84-year-old female's with a multiple medical problem including the chronic kidney disease hyperparathyroidism dementia hypertensions hyperlipidemia coronary artery disease congestive heart failure came to the emergency department with the altered mental status not feeling well Patient admitting in the hospital diagnosed with the pancreatitis renal failure patient's was treated with IV fluids and IV antibiotics Patient have a Covid test was done was negative Patient's apparently not doing well slowly declining the conditions patient's dementia is getting more worse failure to thrive unable to eat or drink pretty much patients more agitated and according to the nephrology cardiology nothing much can be offer and hospice is more appropriate With the end-stage conditions including the chronic kidney disease coronary artery disease worsening the dementia's with the multiple comorbidity with advanced age patient at this point appropriate for the hospice care with a life expectancy is less than 6-month Discussed with the patient's family including the son and the daughter regarding the patient's current conditions with all options out patients at this point failure to thrive with the dementia's patients at this point appropriate with the hospice understand very well and patient's discharge in the hospice care patient is currently a DNR/DNI Physical Exam Vital Signs: Temp Pulse Resp BP Pulse Ox 97.2 F 85 18 156/81 H 97 04/25/20 20:05 04/26/20 02:00 04/25/20 20:05 04/25/20 20:05 04/25/20 20:05 Intake & Output 04/25/20 04/26/20 04/27/20 06:59 06:59 06:59 Intake Total 1989 1050 Output Total 652 1425 Balance 1365 -375 Weight 86.1 kg 86.1 kg General appearance: PRESENT: no acute distress Eye exam: PRESENT: PERRLA Mouth exam: PRESENT: neck supple GI/Abdominal exam: PRESENT: normal bowel sounds, soft Neurological exam: PRESENT: altered Skin exam: PRESENT: dry Results Laboratory Results: WBC 9.2 10^3/uL (4.0-10.5) 04/24/20 08:52 RBC 3.64 10^6/uL (3.72-5.28) L 04/24/20 08:52 Hgb 10.3 g/dL (12.0-15.5) L 04/24/20 08:52 Hct 30.4 % (36.0-47.0) L 04/24/20 08:52 MCV 84 fl (80-97) 04/24/20 08:52 MCH 28.4 pg (27.0-33.4) 04/24/20 08:52 MCHC 34.0 g/dL (32.0-36.0) 04/24/20 08:52 RDW 15.8 % (11.5-14.0) H 04/24/20 08:52 Plt Count 110 10^3/uL (150-450) L 04/24/20 08:52 Lymph % (Auto) 8.5 % (13-45) L 04/24/20 08:52 Kay % (Auto) 5.7 % (3-13) 04/24/20 08:52 Eos % (Auto) 2.4 % (0-6) 04/24/20 08:52 Baso % (Auto) 0.2 % (0-2) 04/24/20 08:52 Absolute Neuts (auto) 7.6 10^3/uL (1.7-8.2) 04/24/20 08:52 Absolute Lymphs (auto) 0.8 10^3/uL (0.5-4.7) 04/24/20 08:52 Absolute Monos (auto) 0.5 10^3/uL (0.1-1.4) 04/24/20 08:52 Absolute Eos (auto) 0.2 10^3/uL (0.0-0.6) 04/24/20 08:52 Absolute Basos (auto) 0.0 10^3/uL (0.0-0.2) 04/24/20 08:52 Total Counted 100 04/20/20 06:00 Seg Neutrophils % 83.2 % (42-78) H 04/24/20 08:52 Seg Neuts % (Manual) 90 % (42-78) H 04/20/20 06:00 Lymphocytes % (Manual) 7 % (13-45) L 04/20/20 06:00 Monocytes % (Manual) 3 % (3-13) 04/20/20 06:00 Eosinophils % (Manual) 0 % (0-6) 04/20/20 06:00 Basophils % (Manual) 0 % (0-2) 04/20/20 06:00 Abs Neuts (Manual) 14.4 10^3/uL (1.7-8.2) H 04/20/20 06:00 Abs Lymphs (Manual) 1.1 10^3/uL (0.5-4.7) 04/20/20 06:00 Abs Monocytes (Manual) 0.5 10^3/uL (0.1-1.4) 04/20/20 06:00 Absolute Eos (Manual) 0.0 10^3/uL (0.0-0.6) 04/20/20 06:00 Abs Basophils (Manual) 0.0 10^3/uL (0.0-0.2) 04/20/20 06:00 Toxic Granulation SLIGHT 04/20/20 06:00 Toxic Vacuolation PRESENT 04/20/20 06:00 Platelet Estimate Cancelled 04/24/20 07:48 Platelet Comment DECREASED 04/20/20 06:00 Anisocytosis 1+ 04/20/20 06:00 Sodium 133.5 mmol/L (137-145) L 04/24/20 08:52 Potassium 3.6 mmol/L (3.6-5.0) 04/24/20 08:52 Chloride 109 mmol/L (98-107) H 04/24/20 08:52 Carbon Dioxide 18 mmol/L (22-30) L 04/24/20 08:52 Anion Gap 7 (5-19) 04/24/20 08:52 BUN 21 mg/dL (7-20) H 04/24/20 08:52 Creatinine 1.30 mg/dL (0.52-1.25) H 04/24/20 08:52 Est GFR ( Amer) 47 (>60) L 04/24/20 08:52 Est GFR (MDRD) Non-Af 39 (>60) L 04/24/20 08:52 Glucose 116 mg/dL (75-110) H 04/24/20 08:52 POC Glucose 120 mg/dL (70-110) H 04/26/20 07:38 Calcium 11.6 mg/dL (8.4-10.2) H 04/24/20 08:52 Total Bilirubin 0.4 mg/dL (0.2-1.3) 04/19/20 12:57 Direct Bilirubin 0.2 mg/dL (0.0-0.4) 04/19/20 12:57 Neonat Total Bilirubin Not Reportable 04/19/20 12:57 Neonat Direct Bilirubin Not Reportable 04/19/20 12:57 Neonat Indirect Bili Not Reportable 04/19/20 12:57 AST 19 U/L (14-36) 04/19/20 12:57 ALT 13 U/L (<35) 04/19/20 12:57 Alkaline Phosphatase 120 U/L (38-126) 04/19/20 12:57 Creatine Kinase 46 U/L (30-135) 04/17/20 14:58 CK-MB (CK-2) 0.58 ng/mL (<4.55) 04/17/20 14:58 Troponin I 0.104 ng/mL 04/17/20 18:03 Total Protein 5.4 g/dL (6.3-8.2) L 04/19/20 12:57 Albumin 2.7 g/dL (3.5-5.0) L 04/19/20 12:57 Lipase 1865.0 U/L (23-300) H 04/24/20 08:52 Urine Color YELLOW 04/17/20 15:12 Urine Appearance CLEAR 04/17/20 15:12 Urine pH 5.0 (5.0-9.0) 04/17/20 15:12 Ur Specific [place] 1.017 04/17/20 15:12 Urine Protein 30 mg/dL (NEGATIVE) H 04/17/20 15:12 Urine Glucose (UA) NEGATIVE mg/dL (NEGATIVE) 04/17/20 15:12 Urine Ketones NEGATIVE mg/dL (NEGATIVE) 04/17/20 15:12 Urine Blood NEGATIVE (NEGATIVE) 04/17/20 15:12 Urine Nitrite NEGATIVE (NEGATIVE) 04/17/20 15:12 Urine Bilirubin NEGATIVE (NEGATIVE) 04/17/20 15:12 Urine Urobilinogen NEGATIVE mg/dL (<2.0) 04/17/20 15:12 Ur Leukocyte Esterase NEGATIVE (NEGATIVE) 04/17/20 15:12 Urine WBC (Auto) 0 /HPF 04/17/20 15:12 U Hyaline Cast (Auto) 1 /LPF 04/17/20 15:12 Urine Mucus (Auto) RARE /LPF 04/17/20 15:12 Urine Ascorbic Acid NEGATIVE (NEGATIVE) 04/17/20 15:12 COVID-19 Source See comment 04/23/20 17:45 COVID-19 (JONATHAN) Not Detected (Not Detect) 04/23/20 17:45 Slides for Path Review Cancelled 04/24/20 07:48 04/17/20 04/17/20 14:58 18:03 CK-MB (CK-2) 0.58 Troponin I 0.121 0.104 Impressions: Chest X-Ray 04/17/20 15:13 IMPRESSION: NO ACUTE RADIOGRAPHIC FINDING IN THE CHEST. Head CT 04/17/20 15:14 IMPRESSION: CHRONIC CHANGES OF ATROPHY AND MICROVASCULAR ISCHEMIA. NO ACUTE PROCESS. EVIDENCE OF ACUTE STROKE: NO. Abdomen/Pelvis CT 04/18/20 00:00 IMPRESSION: 1. Asymmetric soft tissue density within the pancreatic tail measuring approximately 2.3 x 1.4 cm with mild adjacent peripancreatic stranding. Findings may be sequelae of pancreatitis although pancreatic neoplasm is not excluded. Recommend correlation with lab values and patient's symptoms. Follow-up dedicated pancreatic protocol CT or MRI should be considered for further characterization. 2. No other evidence of acute intra-abdominal/pelvic process. 3. Status post cholecystectomy. Abdomen MRI 04/19/20 00:00 IMPRESSION: 1. Inflammatory changes consistent with pancreatitis. Difficult to determine if there is a mass in the pancreatic tail versus atrophy in the remainder of the gland. Follow-up is recommended. 2. Small amount of ascites. Plan Time Spent: Greater than 30 Minutes - Patient is discharged with the hospice care Stroke Is this a Stroke Patient?: No Acute Heart Failure Is this a Heart Failure Patient?: No
[2020-04-26] MEDS: COLLAGENASE CLOSTRIDIUM HIST. OINT 30 GM TP SCH (09:26)
[2020-04-26] MEDS: MUPIROCIN 2% OINTMENT 22 GM TOP SCH ×2 (09:26→13:04)
[2020-04-26] MEDS: ATENOLOL 50 MG TABLET PO SCH (09:26)
[2020-04-26 16:03] VITALS: BP 157/87
== END 2020-04-26 16:14 | DRG 439 ==
LOC: ER 14:47 → EH 19:47 → 3W 23:05 → 3S 04-19 02:20
PROVIDERS: ADMIT Family Medicine; ATTEND Family Medicine
DX: K85.90 Acute pancreatitis without necrosis or infection, unspecified (principal); N17.9 Acute kidney failure, unspecified; N18.4 Chronic kidney disease, stage 4 (severe); N25.81 Secondary hyperparathyroidism of renal origin; E87.2 Acidosis; R53.1 Weakness; E86.0 Dehydration; Z78.1 Physical restraint status; Z66 Do not resuscitate; E11.22 Type 2 diabetes mellitus with diabetic chronic kidney disease; D63.1 Anemia in chronic kidney disease; F32.9 Major depressive disorder, single episode, unspecified; Z20.828 Contact with and (suspected) exposure to other viral communicable diseases; I12.9 Hypertensive chronic kidney disease with stage 1 through stage 4 chronic kidney disease, or unspecified chronic kidney disease; I25.10 Atherosclerotic heart disease of native coronary artery without angina pectoris; F03.90 Unspecified dementia, unspecified severity, without behavioral disturbance, psychotic disturbance, mood disturbance, and anxiety; E83.52 Hypercalcemia; E78.5 Hyperlipidemia, unspecified; B37.2 Candidiasis of skin and nail; I44.7 Left bundle-branch block, unspecified; K21.9 Gastro-esophageal reflux disease without esophagitis; E78.00 Pure hypercholesterolemia, unspecified; E87.6 Hypokalemia; R62.7 Adult failure to thrive; Z86.73 Personal history of transient ischemic attack (TIA), and cerebral infarction without residual deficits; Z79.899 Other long term (current) drug therapy; Z83.3 Family history of diabetes mellitus; Z82.49 Family history of ischemic heart disease and other diseases of the circulatory system
CPT/HCPCS: 36415; 70450; 71045; 74176; 74181; 80048; 80053; 80076; 81001; 82550; 82553; 82962; 83690; 84484; 85025; 85027; 87040; 87086; 87635; 93005; 93010; 93306; 99285; C9113; C9803; J0360; J0692; J0696; J1642; J3480; J3490; J7030